=== PATIENT | female | born 1985 | race Two or more races ===

== ENCOUNTER 2016-10-11 14:40 | Emergency (ER) | payer MEDICAID, OTHER ==
--- NOTE | 2016-10-11 14:49 | EDM.PDOC ---
ED HPI Trauma - General Chief Complaint: Upper Extremity Injury/Pain Stated Complaint: FALL Time Seen by Provider: 10/11/16 14:42 Source: Reports: Patient History Limitations: Reports: No limitations - History of Present Illness INITIAL COMMENTS - FREE TEXT/NARRATIVE: History of present illness: [] Patient slipped on the ice and fell onto her left elbow 30 minutes ago the denies any other injuries. Patient denies any numbness or tingling she is unable to straighten her elbow due to pain. Review of systems: As per history of present illness and below otherwise all systems reviewed and negative. Past medical history: As per history of present illness and as reviewed below otherwise noncontributory. Surgical history: As per history of present illness and as reviewed below otherwise noncontributory. Social history: No reported history of drug or alcohol abuse. Family history: As per history of present illness and as reviewed below otherwise noncontributory. Physical exam: General: Well developed, well nourished in NAD HEENT: Atraumatic, normocephalic, pupils reactive, negative for conjunctival pallor or scleral icterus, mucous membranes moist, throat clear, neck supple, nontender, trachea midline. Lungs: Clear to auscultation, breath sounds equal bilaterally, chest nontender. Heart: S1S2, regular, negative for clicks, rubs, or JVD. Abdomen: Soft, nondistended, nontender. Negative for masses or hepatosplenomegaly. Negative for costovertebral tenderness. Pelvis: Stable nontender. Genitourinary: Deferred. Rectal: Deferred. Extremities: Atraumatic, negative for cords or calf pain. Neurovascular unremarkable. Neuro: Awake, alert, oriented. Cranial nerves II through XII unremarkable. Cerebellum unremarkable. Motor and sensory unremarkable throughout. Exam nonfocal. Diagnostics: [] X-rays left elbow showed no fracture Therapeutics: [] Motrin for pain Impression: [] Left Elbow continue Plan: [] Ice Motrin for pain followup PMD as needed Definitive disposition and diagnosis as appropriate pending reevaluation and review of above. Review of Systems - Review of Systems Review Of Systems: See Below (See history of present illness) Trauma Exam - Physical Exam Exam: See Below (See history of present illness) Course - Vital Signs Last Recorded V/S: Last Vital Signs Temp 36.8 C 10/11/16 14:45 Pulse 76 10/11/16 14:45 Resp 18 10/11/16 14:45 BP 117/71 10/11/16 14:45 Pulse Ox 99 10/11/16 14:45 - Orders/Labs/Meds Orders: Active Orders 24 hr Category Date Time Status Elbow Min 3V Lt [CR] Stat Exams 10/11/16 14:51 Taken Meds: Medications Discontinued Medications Generic Name Dose Route Start Last Admin Trade Name Manjinder PRN Reason Stop Dose Admin Ibuprofen 600 mg 10/11/16 14:54 10/11/16 15:02 Motrin PO 10/11/16 14:55 600 mg ONETIME ONE Administration Departure - Departure Time of Disposition: 15:38 Disposition: Home, Self-Care 01 Condition: good Clinical Impression: Left elbow contusion Qualifiers: Encounter type: initial encounter Qualified Code(s): S50.02XA - Contusion of left elbow, initial encounter Referrals: PCP,None [Primary Care Provider] - Forms: ED Department Discharge Additional Instructions: The following information is given to patients seen in the emergency department who are being discharged to home. This information is to outline your options for follow-up care. We provide all patients seen in our emergency department with a follow-up referral. The need for follow-up, as well as the timing and circumstances, are variable depending upon the specifics of your emergency department visit. If you don't have a primary care physician on staff, we will provide you with a referral. We always advise you to contact your personal physician following an emergency department visit to inform them of the circumstance of the visit and for follow-up with them and/or the need for any referrals to a consulting specialist. The emergency department will also refer you to a specialist when appropriate. This referral assures that you have the opportunity for follow-up care with a specialist. All of these measure are taken in an effort to provide you with optimal care, which includes your follow-up. Under all circumstances we always encourage you to contact your private physician who remains a resource for coordinating your care. When calling for follow-up care, please make the office aware that this follow-up is from your recent emergency room visit. If for any reason you are refused follow-up, please contact the [facility] at and asked to speak to the emergency department charge nurse. Motrin and ice for pain and swelling Followup PMD as needed [facility] [address] [place] [id number] - My Orders Last 24 Hours: My Active Orders 10/11/16 14:51 Elbow Min 3V Lt [CR] Stat - Assessment/Plan Last 24 Hours: My Active Orders 10/11/16 14:51 Elbow Min 3V Lt [CR] Stat
[2016-10-11] MEDS ORDERED: Ibuprofen 600 MG Tab PO ONE (14:54)
[2016-10-11 15:41] VITALS: BP 117/71
--- NOTE | 2016-10-14 15:04 | CR ---
EXAM DATE: 10/11/16 PATIENT'S AGE: 31 Patient: AGUEDA VILLARREAL Facility: [place], [place] Site . Site : 1985 Study: XRay Extremity Left [id number]/10/2017 3:17:18 PM Ordering Physician: Tan Carrion Final Report: Indication: Fall on ice today. Technique: Left elbow three views. Comparison: None. Findings: No acute fracture or dislocation. No additional osseous abnormality. No evidence of joint effusion or radiopaque foreign body. Impression: No acute osseous abnormality. Dictated by Estevan Engel MD @ 10/11/2016 3:31:11 PM Dictated by: Estevan Engel MD @ 10/11/2016 15:31:19 (Electronic Signature) Report Signed by Proxy and Original Signed Document filed in the Medical Record. HARPREET
== END 2016-10-11 15:48 | disposition home or self-care (01) ==
LOC: MW.ED 14:40
DX: S50.02XA Contusion of left elbow, initial encounter (principal); W00.0XXA Fall on same level due to ice and snow, initial encounter
CPT/HCPCS: 73080; 99283; A9270

== ENCOUNTER 2016-10-20 16:53 | Emergency (ER) | payer MEDICAID, OTHER ==
[2016-10-20] MEDS ORDERED: Ketorolac 60 MG/2 ML SDV IM ONE (17:36)
--- NOTE | 2016-10-20 17:43 | EDM.PDOC ---
ED HPI ENT - General Chief Complaint: ENT Problem Stated Complaint: HARD TO SWALLOW/PAIN MOUTH Time Seen by Provider: 10/20/16 16:57 Source of Information: Reports: Patient History Limitations: Reports: No limitations - History of Present Illness INITIAL COMMENTS - FREE TEXT/NARRATIVE: Presents reporting her right lower jaw pain. The patient states for the last 24 hours she has noticed a mild swelling and pain adjacent to tooth #19 or 20. The patient reports that her teeth are in good repair but she has not seen a dentist in some time. She also reports that her saliva has been very thick and makes it difficult for her to swallow. Denies fever, sore throat. - Related Data Allergies/ADRs: Allergies Allergy/AdvReac Type Severity Reaction Status Date / Time No Known Allergies Allergy Verified 10/20/16 17:04 Home Meds: Home Meds . [No Known Home Meds] 10/20/16 [History] Past Medical History - Past Health History Medical/Surgical History: Denies Medical/Surgical History Social & Family History - Family History Family Medical History: Noncontributory - Tobacco Use Smoking Status *Q: Current Every Day Smoker Years of Tobacco use: 4 Packs/Tins Daily: 0.5 Used Tobacco, but Quit: No Second Hand Smoke Exposure: No - Caffeine Use Caffeine Use: Reports: Soda - Recreational Drug Use Recreational Drug Use: No ED ROS ENT - Review of Systems Review Of Systems: ROS reveals no pertinent complaints other than HPI. ED EXAM, ENT - Physical Exam Exam: See Below Exam Limited By: No limitations General Appearance: alert, no apparent distress Ears: normal external exam, normal TMs Nose: normal inspection Mouth/Throat: Normal inspection, Normal gums, Normal lips, Normal oropharynx, Normal teeth, Other (Mild swelling but local tenderness without erythema or calor noted in the left lower jaw adjacent to tooth #19 and 20. No associated intraoral abnormalities or dental caries. No missing, cracked teeth or obvious caries, gingivitis or periodontal disease) Course - Vital Signs Last Recorded V/S: Last Vital Signs Temp 36.6 C 10/20/16 17:01 Pulse 88 10/20/16 17:01 Resp 16 10/20/16 17:01 BP 123/63 10/20/16 17:01 Pulse Ox 100 10/20/16 17:01 - Orders/Labs/Meds Orders: Active Orders 24 hr Category Date Time Status Ketorolac [Toradol] Med 10/20/16 17:36 Once 60 mg IM ONETIME ONE Departure - Departure Time of Disposition: 17:41 Disposition: Home, Self-Care 01 Condition: good Clinical Impression: Mandible pain Referrals: PCP,None [Primary Care Provider] - [facility] [Outside] [facility] [Outside] Forms: ED Department Discharge Additional Instructions: 1. Please see a dentist as soon as possible for an evaluation. A list of local dentists has been provided 2. Take your antibiotics as directed 3. Ibuprofen 4-600 mg 3 times a day as needed for pain 4. Followup in primary care as soon as possible 5. Drink plenty of fluids - My Orders Last 24 Hours: My Active Orders 10/20/16 17:36 Ketorolac [Toradol] 60 mg IM ONETIME ONE - Assessment/Plan Last 24 Hours: My Active Orders 10/20/16 17:36 Ketorolac [Toradol] 60 mg IM ONETIME ONE
[2016-10-20 18:16] VITALS: BP 122/77
== END 2016-10-20 18:16 | disposition home or self-care (01) ==
LOC: MW.ED 16:53
DX: R68.84 Jaw pain (principal); F17.210 Nicotine dependence, cigarettes, uncomplicated
CPT/HCPCS: 96372; 99283; J1885

== ENCOUNTER 2016-10-21 16:15 | Emergency (ER) | payer MEDICAID, OTHER ==
[2016-10-21 16:27] VITALS: BP 108/68
[2016-10-21] MEDS ORDERED: cefTRIAXone 2,000 MG in Lidocaine 1% 4 ML IM ONE (16:42)
--- NOTE | 2016-10-21 16:56 | EDM.PDOC ---
ED HPI GENERAL MEDICAL PROBLEM - General Chief Complaint: Neck Problem Stated Complaint: THROAT SWOLLEN Time Seen by Provider: 10/21/16 16:30 Source of Information: Reports: Patient History Limitations: Reports: No limitations - History of Present Illness INITIAL COMMENTS - FREE TEXT/NARRATIVE: History of present illness: [31-year-old female returning to the ED with concerns of increased swelling, erythema, and pain to right lower jaw. Patient was seen in this ED yesterday with this concern less than 24 hours ago.] Review of systems: As per history of present illness and below otherwise all systems reviewed and negative. Past medical history: As per history of present illness and as reviewed below otherwise noncontributory. Surgical history: As per history of present illness and as reviewed below otherwise noncontributory. Social history: No reported history of drug or alcohol abuse. Family history: As per history of present illness and as reviewed below otherwise noncontributory. Physical exam: HEENT: Atraumatic, normocephalic, pupils reactive, negative for conjunctival pallor or scleral icterus, mucous membranes moist, throat clear, neck supple, nontender, trachea midline. Lungs: Clear to auscultation, breath sounds equal bilaterally, chest nontender. Heart: S1S2, regular, negative for clicks, rubs, or JVD. Abdomen: Soft, nondistended, nontender. Negative for masses or hepatosplenomegaly. Negative for costovertebral tenderness. Pelvis: Stable nontender. Genitourinary: Deferred. Rectal: Deferred. Extremities: Atraumatic, negative for cords or calf pain. Neurovascular unremarkable. Neuro: Awake, alert, oriented. Cranial nerves II through XII unremarkable. Cerebellum unremarkable. Motor and sensory unremarkable throughout. Exam nonfocal. Patient with continued swelling on underside of job an area of right mandible this is slightly worse than seen yesterday is now there is erythema. Patient was seen less than 24 hours ago and is indicating that she is also having some pain Diagnostics: [] Therapeutics: [] Impression: [Mandible pain] Plan: [2 g Rocephin in ED, continue her by mouth antibiotics as previously prescribed , as well as Tylenol 3 as needed for pain] Definitive disposition and diagnosis as appropriate pending reevaluation and review of above. under the right jaw area Pain Score (Numeric/FACES): 10 - Related Data Allergies Allergy/AdvReac Type Severity Reaction Status Date / Time No Known Allergies Allergy Verified 10/21/16 16:19 Home Meds: Home Meds Clindamycin HCl 1 cap PO Q6HR 10/21/16 [History] Past Medical History - Past Health History Medical/Surgical History: Denies Medical/Surgical History Cardiovascular History: Reports: None Respiratory History: Reports: None FINANCIAL REP History: Reports: None Musculoskeletal History: Reports: None Dermatologic History: Reports: None - Infectious Disease History Infectious Disease History: Reports: Chicken pox - Past Surgical History Cardiovascular Surgical History: Reports: None Neurological Surgical History: Reports: None Social & Family History - Family History Family Medical History: Noncontributory - Tobacco Use Smoking Status *Q: Current Every Day Smoker Years of Tobacco use: 4 Packs/Tins Daily: 0.3 Used Tobacco, but Quit: No Second Hand Smoke Exposure: No - Caffeine Use Caffeine Use: Reports: Soda - Recreational Drug Use Recreational Drug Use: No ED ROS GENERAL - Review of Systems Review Of Systems: See Below (See history of present illness) ED EXAM, GENERAL - Physical Exam Exam: See Below (See history of present illness) Course - Vital Signs Last Recorded V/S: Last Vital Signs Temp 36.7 C 10/21/16 16:19 Pulse 92 10/21/16 16:19 Resp 16 10/21/16 16:19 BP 108/68 10/21/16 16:19 Pulse Ox 99 10/21/16 16:19 - Orders/Labs/Meds Meds: Medications Discontinued Medications Generic Name Dose Route Start Last Admin Trade Name Freq PRN Reason Stop Dose Admin Ceftriaxone Sodium 2,000 mg/ 4 mls @ 4 mls/sec 10/21/16 16:42 Lidocaine HCl IM 10/21/16 16:43 ONETIME ONE Departure - Departure Time of Disposition: 16:59 Disposition: Home, Self-Care 01 Condition: good Clinical Impression: Mandible pain Forms: ED Department Discharge Additional Instructions: The following information is given to patients seen in the emergency department who are being discharged to home. This information is to outline your options for follow-up care. We provide all patients seen in our emergency department with a follow-up referral. The need for follow-up, as well as the timing and circumstances, are variable depending upon the specifics of your emergency department visit. If you don't have a primary care physician on staff, we will provide you with a referral. We always advise you to contact your personal physician following an emergency department visit to inform them of the circumstance of the visit and for follow-up with them and/or the need for any referrals to a consulting specialist. The emergency department will also refer you to a specialist when appropriate. This referral assures that you have the opportunity for follow-up care with a specialist. All of these measure are taken in an effort to provide you with optimal care, which includes your follow-up. Under all circumstances we always encourage you to contact your private physician who remains a resource for coordinating your care. When calling for follow-up care, please make the office aware that this follow-up is from your recent emergency room visit. If for any reason you are refused follow-up, please contact the [facility] Emergency Department at and asked to speak to the emergency department charge nurse. Take antibiotics as directed Followup with dentist as soon as possible Return to ED as needed as discussed
== END 2016-10-21 17:17 | disposition home or self-care (01) ==
LOC: MW.ED 16:15
DX: R68.84 Jaw pain (principal); F17.210 Nicotine dependence, cigarettes, uncomplicated
CPT/HCPCS: 96372; 99283; J0696

== ENCOUNTER 2016-10-22 14:49 | Inpatient (IN) | payer MEDICAID, OTHER ==
[2016-10-22 15:57] LABS: CHLORIDE,CL 105 mmol/L (98-110); SODIUM,NA 139 mmol/L (136-146)
[2016-10-22] MEDS ORDERED: Iopamidol 755 MG/ML 500 ML Multipack Bottle IVPUSH STA (16:05)
[2016-10-22] MEDS ORDERED: Sodium Chloride 0.9% 2.5 ML Syringe FLUSH PRN (18:58)
[2016-10-22] MEDS ORDERED: Sodium Chloride 0.9% 10 ML Syringe FLUSH PRN (18:58)
[2016-10-22] MEDS ORDERED: Acetaminophen 325 MG Tab PO PRN (18:58)
[2016-10-22] MEDS ORDERED: Ondansetron 4 MG Tab.DIS PO PRN (18:58)
[2016-10-22] MEDS ORDERED: cefTRIAXone 1,000 MG in Sodium Chloride 0.9% 50 ML IV SCH (19:00)
--- NOTE | 2016-10-22 19:58 | PCM.HP ---
H&P History of Present Illness - General Date of Service: 10/22/16 Admit Problem/Dx: Admission Diagnosis/Problem Admission Diagnosis/Problem Abscess of neck Source of Information: Patient History Limitations: Reports: No limitations - History of Present Illness Initial Comments - Free Text/Narative: 31 yo female admitted 10/22/16 for sublingual abscess/cellulites. Patient states she woke up on the Friday 10/20 with some swelling and redness to her left jaw. She went into the ED and was given an oral antibiotic and discharged. The next morning the swelling had increased so she returned to the ED where she states she was given an abx shot (rocephin) as well as a prescription for Clindamycin. Today 10/22/18 the patient was still concerned as to the swelling, redness, and now difficulty in opening her mouth so went to see Elizabeth Pineda NP who preformed a CT showing a 33 x 9 mm sublingual space abscess medial to the right mandibular body. There were also adjacent enlarged enhancing lymph nodes and edematous inflitration of the tissue planes of the upper neck, greater on the right. Elizabeth contacted Dr. Farris, ENT, who reviewed the films and instructed Elizabeth to have patient admitted for IV antibiotics and possible drainage of the abscess. Patient states that she has not had any associated fevers or shortness of breath. She is able to swallow and has never had a similar episode before. She is generally healthy and takes no medication and has no medical allergies. She has had 4 for 4 healthy children. 3 boys and 1 girl. She denies any chest pain, palpitations, shortness or breath, syncopal episodes, or focal neuralogic deficits. Patient will be admitted and ENT will be consulted for sublingual abscess/ cellulites. 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: Musculoskeletal History: Reports: None Dermatologic History: Reports: None - Infectious Disease History Infectious Disease History: Reports: Chicken pox - Past Surgical History Cardiovascular Surgical History: Reports: None Neurological Surgical History: Reports: None Social & Family History - Family History Family Medical History: Noncontributory - Tobacco Use Smoking Status *Q: Current Every Day Smoker Years of Tobacco use: 4 Packs/Tins Daily: 0.2 Used Tobacco, but Quit: No Second Hand Smoke Exposure: No - Caffeine Use Caffeine Use: Reports: Coffee - Recreational Drug Use Recreational Drug Use: No H&P Review of Systems - Review of Systems: Review Of Systems: See Below General: Denies: fever, malaise, weakness HEENT: Denies: headaches, sore throat Pulmonary: Denies: Shortness of Breath, Cough, Sputum Cardiovascular: Denies: chest pain, palpitations, edema Gastrointestinal: Denies: Abdominal pain, Black stool, Bloody stool, Diarrhea, Nausea Genitourinary: Denies: dysuria, hematuria Musculoskeletal: Denies: neck pain, leg pain Skin: Reports: change in color, lumps Psychiatric: Denies: confusion, depression Neurological: Denies: Confusion, Dizziness Hematologic/Lymphatic: Denies: anemia Immunologic: Denies: anaphylaxis Exam - Exam Exam: See Below - Vital Signs Vital Signs: Last Vital Signs Temp 36.7 C 10/22/16 18:48 Pulse 85 10/22/16 18:48 Resp 18 10/22/16 18:48 BP 106/80 10/22/16 18:48 Pulse Ox 100 10/22/16 18:48 Weight: 62.823 kg - Exam Quality Assessment: DVT prophylaxis General: alert, oriented, cooperative HEENT: Conjunctiva clear, EACs clear, EOMI, Hearing intact, Mucosa moist & pink , Nares patent, Normal nasal septum, Posterior pharynx clear, PERRLA Neck: supple, other (erythema and swelling to right side of neck. There is adjacent lymphadenopathy and tendness to right mandible. ) Lungs: Clear to auscultation, Normal respiratory effort Cardiovascular: regular rate, regular rhythm Abdomen: normal bowel sounds, soft Extremities: normal inspection, normal pulses Peripheral Pulses: 2+: radial (L), radial (R), posterior tibial (L), posterior tibial (R), dorsalis pedis (L), dorsalis pedis (R) Skin: other (See above under neck) Neurological: cranial nerves intact Neuro Extensive - Mental Status: alert, oriented x3, normal mood/affect, normal cognition Neuro Extensive - Motor, Sensory, Reflexes: CN II-XII intact Psychiatric: alert, normal affect, normal mood - Patient Data Lab Results last 24 hrs: Laboratory Results - last 24 hr 10/22/16 10/22/16 10/22/16 Range/Units 14:59 14:59 14:59 WBC 11.72 H (4.0-11.0) K/uL RBC 4.38 (4.30-5.90) M/uL Hgb 11.6 L (12.0-16.0) g/dL Hct 35.4 L (36.0-46.0) % MCV 80.8 (80.0-98.0) fL MCH 26.5 L (27.0-32.0) pg MCHC 32.8 (31.0-37.0) g/dL RDW Std Deviation 43.1 (28.0-62.0) fl RDW Coeff of Milagros 15 (11.0-15.0) % Plt Count 275 (150-400) K/uL MPV 9.70 (7.40-12.00) fL Neut % (Auto) 82.0 H (48.0-80.0) % Lymph % (Auto) 9.6 L (16.0-40.0) % [place] % (Auto) 7.7 (0.0-15.0) % Eos % (Auto) 0.5 (0.0-7.0) % Baso % (Auto) 0.2 (0.0-1.5) % Neut # 9.6 H (1.4-5.7) K/uL Lymph # 1.1 (0.6-2.4) K/uL [place] # 0.9 H (0.0-0.8) K/uL Eos # 0.1 (0.0-0.7) K/uL Baso # 0.0 (0.0-0.1) K/uL Nucleated RBC % 0.0 /100WBC Nucleated RBCs # 0 K/uL Sodium 139 (136-146) mmol/L Potassium 3.9 (3.5-5.1) mmol/L Chloride 105 (98-110) mmol/L Carbon Dioxide 24 (21-31) mmol/L BUN 14 (6.0-23.0) mg/dL Creatinine 0.9 (0.6-1.5) mg/dL Est Cr Clr Drug Dosing 65.05 mL/min Estimated GFR (MDRD) > 60.0 ml/min Glucose 87 (60-110) mg/dL Calcium 9.3 (8.8-10.8) mg/dL C-Reactive Protein 23.81 H (0.0-0.5) mg/dL Urine HCG, Qual (NEGATIVE) 10/22/16 Range/Units 15:00 WBC (4.0-11.0) K/uL RBC (4.30-5.90) M/uL Hgb (12.0-16.0) g/dL Hct (36.0-46.0) % MCV (80.0-98.0) fL MCH (27.0-32.0) pg MCHC (31.0-37.0) g/dL RDW Std Deviation (28.0-62.0) fl RDW Coeff of Milagros (11.0-15.0) % Plt Count (150-400) K/uL MPV (7.40-12.00) fL Neut % (Auto) (48.0-80.0) % Lymph % (Auto) (16.0-40.0) % [place] % (Auto) (0.0-15.0) % Eos % (Auto) (0.0-7.0) % Baso % (Auto) (0.0-1.5) % Neut # (1.4-5.7) K/uL Lymph # (0.6-2.4) K/uL [place] # (0.0-0.8) K/uL Eos # (0.0-0.7) K/uL Baso # (0.0-0.1) K/uL Nucleated RBC % /100WBC Nucleated RBCs # K/uL Sodium (136-146) mmol/L Potassium (3.5-5.1) mmol/L Chloride (98-110) mmol/L Carbon Dioxide (21-31) mmol/L BUN (6.0-23.0) mg/dL Creatinine (0.6-1.5) mg/dL Est Cr Clr Drug Dosing mL/min Estimated GFR (MDRD) ml/min Glucose (60-110) mg/dL Calcium (8.8-10.8) mg/dL C-Reactive Protein (0.0-0.5) mg/dL Urine HCG, Qual NEGATIVE (NEGATIVE) Result Diagrams: 10/22/16 14:59 10/22/16 14:59 *Q Meaningful Use (ADM) - VTE *Q VTE Criteria *Q: - Stroke *Q Stroke Criteria *Q: - AMI *Q AMI Criteria *Q: - Problem List (1) Cellulitis and abscess of neck SNOMED Code(s): 124662438 ICD Code: L03.221 - CELLULITIS OF NECK; L02.11 - CUTANEOUS ABSCESS OF NECK Status: Acute Priority: High Current Visit: Yes Problem List Initiated/Reviewed/Updated: Yes Orders Last 24hrs: Active Orders 24 hr Category Date Time Status Patient Status [ADT] Routine ADT 10/22/16 18:58 Active Antiembolic Devices [RC] DAILY Care 10/22/16 19:01 Active May Shower [RC] ASDIRECTED Care 10/22/16 18:58 Active Notify Provider Consults [RC] ASDIRECTED Care 10/22/16 19:04 Active Oxygen Therapy [RC] PRN Care 10/22/16 18:58 Active Peripheral IV Care [RC] Q4H Care 10/22/16 18:58 Active Up With Assistance [RC] ASDIRECTED Care 10/22/16 18:58 Active VTE/DVT Education [RC] PER UNIT ROUTINE Care 10/22/16 18:58 Active Vital Signs [RC] Q4H Care 10/22/16 18:58 Active Consult to Physician [CONS] Routine Cons 10/22/16 18:58 Active Nothing per Oral Now Diet [DIET] Diet 10/22/16 Dinner Active Soft Tissue Neck w Cont [CT] Stat Exams 10/22/16 Taken BASIC METABOLIC PANEL,BMP [CHEM] DAILY Lab 10/23/16 05:00 Ordered BASIC METABOLIC PANEL,BMP [CHEM] DAILY Lab 10/24/16 05:00 Ordered BASIC METABOLIC PANEL,BMP [CHEM] DAILY Lab 10/25/16 05:00 Ordered BASIC METABOLIC PANEL,BMP [CHEM] DAILY Lab 10/26/16 05:00 Ordered CBC WITH AUTO DIFF [HEME] DAILY Lab 10/23/16 05:00 Ordered CBC WITH AUTO DIFF [HEME] DAILY Lab 10/24/16 05:00 Ordered CBC WITH AUTO DIFF [HEME] DAILY Lab 10/25/16 05:00 Ordered CBC WITH AUTO DIFF [HEME] DAILY Lab 10/26/16 05:00 Ordered CULTURE BLOOD [BC] Stat Lab 10/22/16 19:20 Received CULTURE BLOOD [BC] Stat Lab 10/22/16 19:30 Received MISC TEST Routine Lab 10/22/16 14:59 Received Acetaminophen [Tylenol] Med 10/22/16 18:58 Active 650 mg PO Q4H PRN Enoxaparin [Lovenox] Med 10/23/16 09:00 Active 40 mg SUBCUT DAILY Ondansetron [Zofran ODT] Med 10/22/16 18:58 Active 4 mg PO Q4H PRN Sodium Chloride 0.9% [Normal Saline] 1,000 ml Med 10/22/16 19:00 Active IV ASDIRECTED Sodium Chloride 0.9% [Saline Flush] Med 10/22/16 18:58 Active 10 ml FLUSH ASDIRECTED PRN Sodium Chloride 0.9% [Saline Flush] Med 10/22/16 18:58 Active 2.5 ml FLUSH ASDIRECTED PRN cefTRIAXone [Rocephin] 1,000 mg Med 10/22/16 19:00 Active Sodium Chloride 0.9% [Normal Saline] 50 ml IV Q24H metroNIDAZOLE/Normal Saline [Flagyl 500 MG in NS 100 ML Med 10/23/16 00:00 Active ] 500 mg Premix Bag 1 bag IV Q6H oxyCODONE Med 10/22/16 18:58 Active 5 mg PO Q4H PRN Blood Culture x2 Reflex Set [OM.PC] Stat Oth 10/22/16 18:58 Ordered Peripheral IV Insertion Adult [OM.PC] Routine Oth 10/22/16 18:58 Ordered Sequential Compression Device [OM.PC] Per Unit Routine Oth 10/22/16 19:00 Ordered Resuscitation Status Routine Resus Stat 10/22/16 18:58 Ordered Medication Orders Acetaminophen (Tylenol) 650 mg PO Q4H PRN PRN Reason: Pain (Mild 1-3)/fever Enoxaparin Sodium (Lovenox) 40 mg SUBCUT DAILY NAHOMI Sodium Chloride (Normal Saline) 1,000 mls @ 100 mls/hr IV ASDIRECTED NAHOMI Ceftriaxone Sodium 1,000 mg/ (Sodium Chloride) 50 mls @ 200 mls/hr IV Q24H NAHOMI Metronidazole 500 mg/ Premix 100 mls @ 100 mls/hr IV Q6H NAHOMI Ondansetron HCl (Zofran Odt) 4 mg PO Q4H PRN PRN Reason: nausea, able to take PO Oxycodone HCl (Oxycodone) 5 mg PO Q4H PRN PRN Reason: Pain (moderate 4-6) Sodium Chloride (Saline Flush) 10 ml FLUSH ASDIRECTED PRN PRN Reason: Keep Vein Open Sodium Chloride (Saline Flush) 2.5 ml FLUSH ASDIRECTED PRN PRN Reason: Keep Vein Open Assessment/Plan Comment:: 31 yo female with right 33 x 9 mm sublingual space abscess and cellulites. Abscess/cellulites: Blood cultures taken and pending. Started IV Rocephin and Flagyl as per instructions from ENT. No airway compromise will monitor closely. ENT to see this evening for possible drainage. VTE: Lovenox 40 mg sub q Dispo: 1-2 days pending.
[2016-10-22] MEDS: oxyCODONE 5 MG Tab PO PRN (20:33)
[2016-10-22] MEDS: Sodium Chloride 0.9% 1,000 ML IV SCH (20:34)
[2016-10-22] MEDS: cefTRIAXone 1 GM in Premix Bag 1 BAG IV SCH (20:36)
--- NOTE | 2016-10-22 20:41 | PCM.CONS ---
H&P History of Present Illness - General Date of Service: 10/22/16 Admit Problem/Dx: Admission Diagnosis/Problem Admission Diagnosis/Problem Abscess of neck - History of Present Illness Initial Comments - Free Text/Narative: Right sub mandibular swelling - 2 days Started as a very small lump under her jaw - increased in size over 1 day Also developed trismus Yesterday Was seen in ED and treated with PO antibiotics AND analgesia. Returned to clinic today with increasing sy Mastication - painful Has been on liquids Does not report local trauma No dental infection / pain No such previous symptoms No SOB/ no drooling No headaches Oral/Mouth Pain Score (Numeric/FACES): 8 - Related Data Allergies/Adverse Reactions: Allergies Allergy/AdvReac Type Severity Reaction Status Date / Time No Known Allergies Allergy Verified 10/21/16 16:19 Home Medications: Home Meds Clindamycin HCl 1 cap PO Q6HR 10/21/16 [History] Past Medical History - Past Health History Medical/Surgical History: Denies Medical/Surgical History Cardiovascular History: Reports: None Respiratory History: Reports: None 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: Musculoskeletal History: Reports: None Dermatologic History: Reports: None - Infectious Disease History Infectious Disease History: Reports: Chicken pox - Past Surgical History Cardiovascular Surgical History: Reports: None Neurological Surgical History: Reports: None Social & Family History - Family History Family Medical History: Noncontributory - Tobacco Use Smoking Status *Q: Current Every Day Smoker Years of Tobacco use: 4 Packs/Tins Daily: 0.2 Used Tobacco, but Quit: No Second Hand Smoke Exposure: No - Caffeine Use Caffeine Use: Reports: Coffee - Recreational Drug Use Recreational Drug Use: No H&P Review of Systems - Review of Systems: Review Of Systems: See Below General: Reports: weakness HEENT: Reports: other Pulmonary: Reports: No Symptoms Cardiovascular: Reports: no symptoms Gastrointestinal: Reports: No symptoms Musculoskeletal: Reports: neck pain Skin: Reports: erythema Psychiatric: Reports: no symptoms Neurological: Reports: No Symptoms Hematologic/Lymphatic: Reports: no symptoms Immunologic: Reports: no symptoms Exam - Exam Exam: See Below - Vital Signs Vital Signs: Last Vital Signs Temp 36.7 C 10/22/16 18:48 Pulse 85 10/22/16 18:48 Resp 18 10/22/16 18:48 BP 106/80 10/22/16 18:48 Pulse Ox 100 10/22/16 18:48 Weight: 62.823 kg - Exam General: alert, oriented, cooperative HEENT: Conjunctiva clear, EACs clear, EOMI, Mucosa moist & pink, Normal nasal septum, Other Neck: other Lungs: Clear to auscultation, Normal respiratory effort Cardiovascular: regular rate, regular rhythm Skin: warm, dry, intact Neurological: cranial nerves intact Neuro Extensive - Mental Status: alert, oriented x3 Psychiatric: alert, normal affect, normal mood Physical Exam Comments:: Neck / face - Swelling and overlying skin erythema - Right submandibular region , extending to upper neck and just crossing the midline Central area of firm - soft fluctuance - marked with an X. Oral cavity / oropharynx -Trismus present- moderate R FOM edema + Induration adjacent to the R mandible - adjacent to Canine - 1st molar; no purulence Tereso Gr II tonsils; Pharyngeal wall - clear R level II reactive and tender LNs present - Patient Data Lab Results last 24 hrs: Laboratory Results - last 24 hr 10/22/16 10/22/16 10/22/16 Range/Units 14:59 14:59 14:59 WBC 11.72 H (4.0-11.0) K/uL RBC 4.38 (4.30-5.90) M/uL Hgb 11.6 L (12.0-16.0) g/dL Hct 35.4 L (36.0-46.0) % MCV 80.8 (80.0-98.0) fL MCH 26.5 L (27.0-32.0) pg MCHC 32.8 (31.0-37.0) g/dL RDW Std Deviation 43.1 (28.0-62.0) fl RDW Coeff of Milagros 15 (11.0-15.0) % Plt Count 275 (150-400) K/uL MPV 9.70 (7.40-12.00) fL Neut % (Auto) 82.0 H (48.0-80.0) % Lymph % (Auto) 9.6 L (16.0-40.0) % [place] % (Auto) 7.7 (0.0-15.0) % Eos % (Auto) 0.5 (0.0-7.0) % Baso % (Auto) 0.2 (0.0-1.5) % Neut # 9.6 H (1.4-5.7) K/uL Lymph # 1.1 (0.6-2.4) K/uL [place] # 0.9 H (0.0-0.8) K/uL Eos # 0.1 (0.0-0.7) K/uL Baso # 0.0 (0.0-0.1) K/uL Nucleated RBC % 0.0 /100WBC Nucleated RBCs # 0 K/uL Sodium 139 (136-146) mmol/L Potassium 3.9 (3.5-5.1) mmol/L Chloride 105 (98-110) mmol/L Carbon Dioxide 24 (21-31) mmol/L BUN 14 (6.0-23.0) mg/dL Creatinine 0.9 (0.6-1.5) mg/dL Est Cr Clr Drug Dosing 65.05 mL/min Estimated GFR (MDRD) > 60.0 ml/min Glucose 87 (60-110) mg/dL Calcium 9.3 (8.8-10.8) mg/dL C-Reactive Protein 23.81 H (0.0-0.5) mg/dL Urine HCG, Qual (NEGATIVE) 10/22/16 Range/Units 15:00 WBC (4.0-11.0) K/uL RBC (4.30-5.90) M/uL Hgb (12.0-16.0) g/dL Hct (36.0-46.0) % MCV (80.0-98.0) fL MCH (27.0-32.0) pg MCHC (31.0-37.0) g/dL RDW Std Deviation (28.0-62.0) fl RDW Coeff of Milagros (11.0-15.0) % Plt Count (150-400) K/uL MPV (7.40-12.00) fL Neut % (Auto) (48.0-80.0) % Lymph % (Auto) (16.0-40.0) % [place] % (Auto) (0.0-15.0) % Eos % (Auto) (0.0-7.0) % Baso % (Auto) (0.0-1.5) % Neut # (1.4-5.7) K/uL Lymph # (0.6-2.4) K/uL [place] # (0.0-0.8) K/uL Eos # (0.0-0.7) K/uL Baso # (0.0-0.1) K/uL Nucleated RBC % /100WBC Nucleated RBCs # K/uL Sodium (136-146) mmol/L Potassium (3.5-5.1) mmol/L Chloride (98-110) mmol/L Carbon Dioxide (21-31) mmol/L BUN (6.0-23.0) mg/dL Creatinine (0.6-1.5) mg/dL Est Cr Clr Drug Dosing mL/min Estimated GFR (MDRD) ml/min Glucose (60-110) mg/dL Calcium (8.8-10.8) mg/dL C-Reactive Protein (0.0-0.5) mg/dL Urine HCG, Qual NEGATIVE (NEGATIVE) Result Diagrams: 10/22/16 14:59 10/22/16 14:59 Imaging Impressions last 24 hrs: CT head neck Small area of translucency adjacent to R mandible; surrounding cellulitis; ? inner cortex of mandible eroded adjacent to the abscess - reviewed by me Consult PN Assessment/Plan Procedures: Procedures EMERGENCY DEPT VISIT (10/11/16) X-RAY EXAM OF ELBOW (10/11/16) (1) Submandibular abscess SNOMED Code(s): 93678175 Code(s): K12.2 - CELLULITIS AND ABSCESS OF MOUTH Current Visit: Yes Problem List Initiated/Reviewed/Updated: Yes Plan: - IV antibiotics and analgesia - IV fluids - NPO after midnight - For incision and drainage of abscess under GA tomorrow ( uncertain of time) - Risks and benefits discussed - Consent obtained - Inform PRN
[2016-10-22] MEDS: Morphine 2 MG/ML Syringe IVPUSH PRN (22:54)
[2016-10-22] MEDS: metroNIDAZOLE/Normal Saline 500 MG in Premix Bag 1 BAG IV SCH (23:06)
[2016-10-23] MEDS: Morphine 2 MG/ML Syringe IVPUSH PRN ×2 (02:58→07:11)
[2016-10-23 05:33] LABS: CHLORIDE,CL 106 mmol/L (98-110); SODIUM,NA 138 mmol/L (136-146)
[2016-10-23] MEDS: metroNIDAZOLE/Normal Saline 500 MG in Premix Bag 1 BAG IV SCH ×4 (06:03→23:24)
[2016-10-23] MEDS ORDERED: Albuterol/Ipratropium 3.0-0.5 MG/3 ML Neb Soln NEB ONE (08:10)
--- NOTE | 2016-10-23 08:44 | PCM.PREANE ---
Preanesthetic Assessment - Procedure Proposed Procedure: Foot lesion excision. - Anesthesia/Transfusion/Family Hx Anesthesia History: Prior Anesthesia Without Reaction Transfusion History: No Prior Transfusion(s) Intubation History: Unknown - Review of Systems General: No Symptoms, Other (foot pain) Pulmonary: No Symptoms Cardiovascular: No Symptoms Gastrointestinal: No symptoms Neurological: No Symptoms Other: Reports: None - Physical Assessment O2 Sat by Pulse Oximetry: 95 Respiratory Rate: 18 Vital Signs: Last Vital Signs Temp 98.1 F 10/23/16 08:00 Pulse 92 10/23/16 08:00 Resp 18 10/23/16 08:00 BP 101/68 10/23/16 08:00 Pulse Ox 95 10/23/16 08:00 Height: 5 ft Weight: 138 lb 8 oz ASA Class: 2 Mental Status: Alert & Oriented x3 Airway Class: Mallampati = 4 (due to swelling and pain including right TMJ) Thyro-Mental Finger Breadths: 3 Mouth Opening Finger Breadths: 1 ROM/Head Extension: Limited/Partial (due to right neck/mandible area pain) Lungs: Clear to auscultation, Normal respiratory effort Cardiovascular: Regular Rate, Regular Rhythm, No Murmurs - Lab Values: Laboratory Last Values WBC 11.19 K/uL (4.0-11.0) H 10/23/16 04:51 RBC 3.92 M/uL (4.30-5.90) L 10/23/16 04:51 Hgb 10.6 g/dL (12.0-16.0) L 10/23/16 04:51 Hct 31.9 % (36.0-46.0) L 10/23/16 04:51 MCV 81.4 fL (80.0-98.0) 10/23/16 04:51 MCH 27.0 pg (27.0-32.0) 10/23/16 04:51 MCHC 33.2 g/dL (31.0-37.0) 10/23/16 04:51 RDW Std Deviation 43.5 fl (28.0-62.0) 10/23/16 04:51 RDW Coeff of Milagros 15 % (11.0-15.0) 10/23/16 04:51 Plt Count 264 K/uL (150-400) 10/23/16 04:51 MPV 9.80 fL (7.40-12.00) 10/23/16 04:51 Neut % (Auto) 82.4 % (48.0-80.0) H 10/23/16 04:51 Lymph % (Auto) 8.8 % (16.0-40.0) L 10/23/16 04:51 [place] % (Auto) 8.3 % (0.0-15.0) 10/23/16 04:51 Eos % (Auto) 0.4 % (0.0-7.0) 10/23/16 04:51 Baso % (Auto) 0.1 % (0.0-1.5) 10/23/16 04:51 Neut # 9.2 K/uL (1.4-5.7) H 10/23/16 04:51 Lymph # 1.0 K/uL (0.6-2.4) 10/23/16 04:51 [place] # 0.9 K/uL (0.0-0.8) H 10/23/16 04:51 Eos # 0.0 K/uL (0.0-0.7) 10/23/16 04:51 Baso # 0.0 K/uL (0.0-0.1) 10/23/16 04:51 Nucleated RBC % 0.0 /100WBC 10/23/16 04:51 Nucleated RBCs # 0 K/uL 10/23/16 04:51 Sodium 138 mmol/L (136-146) 10/23/16 04:51 Potassium 4.2 mmol/L (3.5-5.1) 10/23/16 04:51 Chloride 106 mmol/L (98-110) 10/23/16 04:51 Carbon Dioxide 22 mmol/L (21-31) 10/23/16 04:51 BUN 10 mg/dL (6.0-23.0) 10/23/16 04:51 Creatinine 0.9 mg/dL (0.6-1.5) 10/23/16 04:51 Est Cr Clr Drug Dosing 65.05 mL/min 10/23/16 04:51 Estimated GFR (MDRD) > 60.0 ml/min 10/23/16 04:51 Glucose 90 mg/dL (60-110) 10/23/16 04:51 Calcium 8.5 mg/dL (8.8-10.8) L 10/23/16 04:51 C-Reactive Protein 23.81 mg/dL (0.0-0.5) H 10/22/16 14:59 Urine HCG, Qual NEGATIVE (NEGATIVE) 10/22/16 15:00 - Allergies Allergies/Adverse Reactions: Allergies Allergy/AdvReac Type Severity Reaction Status Date / Time No Known Allergies Allergy Verified 10/21/16 16:19 - Blood Blood Available: No Product(s) Available: None - Anesthesia Plan Free Text/Narrative:: may need indirect laryngoscopy to secure airway. Pre-Op Medication Ordered: None - Acknowledgements Anesthesia Type Planned: General Anesthesia (OET; ok per surgeon) Pt an Appropriate Candidate for the Planned Anesthesia: Yes Alternatives and Risks of Anesthesia Discussed w Pt/Guardian: Yes Pt/Guardian Understands and Agrees with Anesthesia Plan: Yes PreAnesthesia Questionnaire - Past Health History Medical/Surgical History: Denies Medical/Surgical History Cardiovascular History: Reports: None Respiratory History: Reports: None [employer] History: Reports: Musculoskeletal History: Reports: None Dermatologic History: Reports: None - Infectious Disease History Infectious Disease History: Reports: Chicken pox - Past Surgical History Cardiovascular Surgical History: Reports: None Neurological Surgical History: Reports: None - SUBSTANCE USE Smoking Status *Q: Current Every Day Smoker Tobacco Use Within Last Twelve Months: Cigarettes Second Hand Smoke Exposure: No Recreational Drug Use History: No - HOME MEDS Home Medications: Home Meds Clindamycin HCl 1 cap PO Q6HR 10/21/16 [History] - CURRENT (IN HOUSE) MEDS Current Meds: Current Medications Acetaminophen (Tylenol) 650 mg PO Q4H PRN PRN Reason: Pain (Mild 1-3)/fever Enoxaparin Sodium (Lovenox) 40 mg SUBCUT DAILY [facility] Sodium Chloride (Normal Saline) 1,000 mls @ 100 mls/hr IV ASDIRECTED [facility] Last Admin: 10/22/16 20:34 Dose: 100 mls/hr Metronidazole 500 mg/ Premix 100 mls @ 100 mls/hr IV Q6H [facility] Last Admin: 10/23/16 06:03 Dose: 100 mls/hr Ceftriaxone Sodium/Dextrose 1 (gm/ Premix) 50 mls @ 100 mls/hr IV Q24H [facility] Last Admin: 10/22/16 20:36 Dose: 100 mls/hr Morphine Sulfate (Morphine) 2 mg IVPUSH Q4H PRN PRN Reason: Pain (severe 7-10) Last Admin: 10/23/16 07:11 Dose: 2 mg Ondansetron HCl (Zofran Odt) 4 mg PO Q4H PRN PRN Reason: nausea, able to take PO Oxycodone HCl (Oxycodone) 5 mg PO Q4H PRN PRN Reason: Pain (moderate 4-6) Last Admin: 10/22/16 20:33 Dose: 5 mg Sodium Chloride (Saline Flush) 10 ml FLUSH ASDIRECTED PRN PRN Reason: Keep Vein Open Sodium Chloride (Saline Flush) 2.5 ml FLUSH ASDIRECTED PRN PRN Reason: Keep Vein Open Discontinued Medications Albuterol/Ipratropium (Duoneb 3.0-0.5 Mg/3 Ml) 3 ml NEB ONETIME ONE Stop: 10/23/16 08:11 Iopamidol (Isovue Multipack-370 (76%)) 75 ml IVPUSH ONETIME STA Stop: 10/22/16 16:06 Last Admin: 10/22/16 17:01 Dose: 75 ml Preanesthetic Assessment - PHYSICAL ASSESSMENT O2 Sat by Pulse Oximetry: 95 RR: 18 Vital Signs: Last Vital Signs Temp 98.1 F 10/23/16 08:00 Pulse 92 10/23/16 08:00 Resp 18 10/23/16 08:00 BP 101/68 10/23/16 08:00 Pulse Ox 95 10/23/16 08:00 Height: 5 ft Weight: 138 lb 8 oz - LAB Values: Laboratory Last Values WBC 11.19 K/uL (4.0-11.0) H 10/23/16 04:51 RBC 3.92 M/uL (4.30-5.90) L 10/23/16 04:51 Hgb 10.6 g/dL (12.0-16.0) L 10/23/16 04:51 Hct 31.9 % (36.0-46.0) L 10/23/16 04:51 MCV 81.4 fL (80.0-98.0) 10/23/16 04:51 MCH 27.0 pg (27.0-32.0) 10/23/16 04:51 MCHC 33.2 g/dL (31.0-37.0) 10/23/16 04:51 RDW Std Deviation 43.5 fl (28.0-62.0) 10/23/16 04:51 RDW Coeff of Milagros 15 % (11.0-15.0) 10/23/16 04:51 Plt Count 264 K/uL (150-400) 10/23/16 04:51 MPV 9.80 fL (7.40-12.00) 10/23/16 04:51 Neut % (Auto) 82.4 % (48.0-80.0) H 10/23/16 04:51 Lymph % (Auto) 8.8 % (16.0-40.0) L 10/23/16 04:51 [place] % (Auto) 8.3 % (0.0-15.0) 10/23/16 04:51 Eos % (Auto) 0.4 % (0.0-7.0) 10/23/16 04:51 Baso % (Auto) 0.1 % (0.0-1.5) 10/23/16 04:51 Neut # 9.2 K/uL (1.4-5.7) H 10/23/16 04:51 Lymph # 1.0 K/uL (0.6-2.4) 10/23/16 04:51 [place] # 0.9 K/uL (0.0-0.8) H 10/23/16 04:51 Eos # 0.0 K/uL (0.0-0.7) 10/23/16 04:51 Baso # 0.0 K/uL (0.0-0.1) 10/23/16 04:51 Nucleated RBC % 0.0 /100WBC 10/23/16 04:51 Nucleated RBCs # 0 K/uL 10/23/16 04:51 Sodium 138 mmol/L (136-146) 10/23/16 04:51 Potassium 4.2 mmol/L (3.5-5.1) 10/23/16 04:51 Chloride 106 mmol/L (98-110) 10/23/16 04:51 Carbon Dioxide 22 mmol/L (21-31) 10/23/16 04:51 BUN 10 mg/dL (6.0-23.0) 10/23/16 04:51 Creatinine 0.9 mg/dL (0.6-1.5) 10/23/16 04:51 Est Cr Clr Drug Dosing 65.05 mL/min 10/23/16 04:51 Estimated GFR (MDRD) > 60.0 ml/min 10/23/16 04:51 Glucose 90 mg/dL (60-110) 10/23/16 04:51 Calcium 8.5 mg/dL (8.8-10.8) L 10/23/16 04:51 C-Reactive Protein 23.81 mg/dL (0.0-0.5) H 10/22/16 14:59 Urine HCG, Qual NEGATIVE (NEGATIVE) 10/22/16 15:00 - ALLERGIES Allergies/Adverse Reactions: Allergies Allergy/AdvReac Type Severity Reaction Status Date / Time No Known Allergies Allergy Verified 10/21/16 16:19
[2016-10-23] MEDS ORDERED: Enoxaparin 40 MG/0.4 ML Syringe SUBCUT SCH (09:00)
[2016-10-23] MEDS: Sodium Chloride 0.9% 1,000 ML IV SCH (10:10)
[2016-10-23] MEDS ORDERED: fentaNYL 250 MCG/5 ML SDV ONE (10:10)
[2016-10-23] MEDS ORDERED: Rocuronium 10 MG/ML 10 ML Syringe ONE (10:10)
[2016-10-23] MEDS ORDERED: Propofol 200 MG/20 ML SDV ONE (10:10)
[2016-10-23] MEDS ORDERED: Midazolam 1 MG/ML 2 ML SDV ONE (10:10)
[2016-10-23] MEDS ORDERED: Lidocaine 2% 5 ML SDV ONE (10:10)
[2016-10-23] MEDS ORDERED: Ondansetron 4 MG/2 ML SDV ONE (10:10)
--- NOTE | 2016-10-23 10:58 | PCM.HPR ---
H & P Addendum review - H & P Addendum Review Date of Original H & P: 10/22/16 Date Reviewed: 10/23/16 Time Reviewed: 10:50 Patient was examined: No Changes
[2016-10-23] MEDS ORDERED: Lidocaine 2% with EPINEPHrine 1:100,000 20 ML MDV ONE (10:59)
--- NOTE | 2016-10-23 11:03 | PCM.OPNOTE ---
- General Post-Op/Procedure Note Date of Surgery/Procedure: 10/23/16 Anesthesia Technique: General ET tube Primary Surgeon: Libby Farris Anesthesia Provider: Colby Ng Fluid Replacement, Intraop: 2,000 EBL in mLs: 10 Condition: Good Free Text/Narrative:: Intake & Output Diagnosis: Right sublingual space abscess Procedure: Intra oral incision and drainage of Right sublingual abscess Surgeon: Libby Farris MD Anesthesia: GA Anesthesiologist: Basil Ng MD Date of procedure: 10/23/2016 Indications: Patient has had a progressively enlarging right facial/ submandibular swelling for the last 3 days. After an un successful trial of oral antibiotics she underwent a contrast scan yesterday which showed a collection in the right sublingual space. She was consented for the procedure. Findings: diffuse swelling of the right submandibular region extending onto the right mandibular margin. This swelling extends just to the left of the midline in the upper neck. Overlying skin was cellulitic. Approximately 10 cc of creamy purulence drained from the right sublingual space. Operation Details: An informed consent was obtained. A time out was performed and the patient was brought back to the operating room. Gen. anesthesia was administered with an endotracheal tube. Prior to start of procedure anesthesia expressed concern about the patient being tachycardic. This was thought to be from inappropriate fluid replacement. Fluid bolus given and she responded to this. The patient was appropriately positioned and the part was prepped and draped in a standard sterile fashion. An 18-gauge needle was used to aspirate the skin at the most prominent aspect-no purulence The mouth was propped open with the bite block and the tongue was retracted away from the operating site with the help of a 0 Silk suture. The right sublingual space adjacent to the mandible was aspirated with an 18-gauge needle- purulence expressed-sent for culture and sensitivity. Number 10 blade on a BP handle was used to make superficial stab incision. This was further dilated with hemostat and approximately 10 cc of purulence was expressed. The cavity was thoroughly irrigated with warm saline. Hemostasis was ensured with a swab soaked in 1: 1000 epinephrine. 2 cc of lidocaine w 1: 1000 epinephrine was locally injected at the site of drainage. This concluded the procedure. The tongue suture and bite block were removed. The patient was handed over to anesthesia for recovery. Specimens: Purulence IV fluids: 2000 ml Blood loss: 10 ml Blood products: nil Disposition: PACU for recovery and then to the floor Follow up: In 1 week
[2016-10-23] MEDS ORDERED: Phenylephrine/Normal Saline 100 MCG/ML 10 ML Syringe ONE (11:20)
--- NOTE | 2016-10-23 11:21 | PCM.PN ---
- General Info Date of Service: 10/23/16 Admission Dx/Problem (Free Text): Admission Diagnosis/Problem Admission Diagnosis/Problem Abscess of neck Subjective Update: Believes there has been a bit more swelling of right jaw and neck overnight. Having some tongue pain. Hungry. No chest pain, sob, palpitations, or wheezing. No complaints ready for surgery. Functional Status: Reports: pain controlled - Review of Systems General: Denies: Fever, Weakness, Fatigue HEENT: Reports: sore throat. Denies: sinus congestion Pulmonary: Denies: shortness of breath, hemoptysis, wheezing Cardiovascular: Denies: Chest Pain, Palpitations, Edema Gastrointestinal: Denies: Abdominal pain, Nausea, Vomiting Genitourinary: Denies: dysuria, hematuria Musculoskeletal: Denies: leg pain Skin: Denies: cyanosis Neurological: Denies: Confusion, Dizziness Psychiatric: Denies: confusion - Patient Data Vitals - most recent: Last Vital Signs Temp 37.1 C 10/23/16 10:19 Pulse 92 10/23/16 10:19 Resp 16 10/23/16 10:19 BP 117/78 10/23/16 10:19 Pulse Ox 95 10/23/16 10:19 Weight - most recent: 62.823 kg I&O - last 24 hours: Intake & Output 10/22/16 10/23/16 10/23/16 22:59 06:59 14:59 Intake Total 50 420 1103 Output Total 1150 Balance 50 -730 1103 Lab Results last 24 hrs: Laboratory Results - last 24 hr 10/22/16 10/22/16 10/22/16 Range/Units 14:59 14:59 14:59 WBC 11.72 H (4.0-11.0) K/uL RBC 4.38 (4.30-5.90) M/uL Hgb 11.6 L (12.0-16.0) g/dL Hct 35.4 L (36.0-46.0) % MCV 80.8 (80.0-98.0) fL MCH 26.5 L (27.0-32.0) pg MCHC 32.8 (31.0-37.0) g/dL RDW Std Deviation 43.1 (28.0-62.0) fl RDW Coeff of Milagros 15 (11.0-15.0) % Plt Count 275 (150-400) K/uL MPV 9.70 (7.40-12.00) fL Neut % (Auto) 82.0 H (48.0-80.0) % Lymph % (Auto) 9.6 L (16.0-40.0) % [place] % (Auto) 7.7 (0.0-15.0) % Eos % (Auto) 0.5 (0.0-7.0) % Baso % (Auto) 0.2 (0.0-1.5) % Neut # 9.6 H (1.4-5.7) K/uL Lymph # 1.1 (0.6-2.4) K/uL [place] # 0.9 H (0.0-0.8) K/uL Eos # 0.1 (0.0-0.7) K/uL Baso # 0.0 (0.0-0.1) K/uL Nucleated RBC % 0.0 /100WBC Nucleated RBCs # 0 K/uL Sodium 139 (136-146) mmol/L Potassium 3.9 (3.5-5.1) mmol/L Chloride 105 (98-110) mmol/L Carbon Dioxide 24 (21-31) mmol/L BUN 14 (6.0-23.0) mg/dL Creatinine 0.9 (0.6-1.5) mg/dL Est Cr Clr Drug Dosing 65.05 mL/min Estimated GFR (MDRD) > 60.0 ml/min Glucose 87 (60-110) mg/dL Calcium 9.3 (8.8-10.8) mg/dL C-Reactive Protein 23.81 H (0.0-0.5) mg/dL Urine HCG, Qual (NEGATIVE) 10/22/16 10/23/16 10/23/16 Range/Units 15:00 04:51 04:51 WBC 11.19 H (4.0-11.0) K/uL RBC 3.92 L (4.30-5.90) M/uL Hgb 10.6 L (12.0-16.0) g/dL Hct 31.9 L (36.0-46.0) % MCV 81.4 (80.0-98.0) fL MCH 27.0 (27.0-32.0) pg MCHC 33.2 (31.0-37.0) g/dL RDW Std Deviation 43.5 (28.0-62.0) fl RDW Coeff of Milagros 15 (11.0-15.0) % Plt Count 264 (150-400) K/uL MPV 9.80 (7.40-12.00) fL Neut % (Auto) 82.4 H (48.0-80.0) % Lymph % (Auto) 8.8 L (16.0-40.0) % [place] % (Auto) 8.3 (0.0-15.0) % Eos % (Auto) 0.4 (0.0-7.0) % Baso % (Auto) 0.1 (0.0-1.5) % Neut # 9.2 H (1.4-5.7) K/uL Lymph # 1.0 (0.6-2.4) K/uL [place] # 0.9 H (0.0-0.8) K/uL Eos # 0.0 (0.0-0.7) K/uL Baso # 0.0 (0.0-0.1) K/uL Nucleated RBC % 0.0 /100WBC Nucleated RBCs # 0 K/uL Sodium 138 (136-146) mmol/L Potassium 4.2 (3.5-5.1) mmol/L Chloride 106 (98-110) mmol/L Carbon Dioxide 22 (21-31) mmol/L BUN 10 (6.0-23.0) mg/dL Creatinine 0.9 (0.6-1.5) mg/dL Est Cr Clr Drug Dosing 65.05 mL/min Estimated GFR (MDRD) > 60.0 ml/min Glucose 90 (60-110) mg/dL Calcium 8.5 L (8.8-10.8) mg/dL C-Reactive Protein (0.0-0.5) mg/dL Urine HCG, Qual NEGATIVE (NEGATIVE) Med Orders - Current: Current Medications Acetaminophen (Tylenol) 650 mg PO Q4H PRN PRN Reason: Pain (Mild 1-3)/fever Sodium Chloride (Normal Saline) 1,000 mls @ 100 mls/hr IV ASDIRECTED [facility] Last Admin: 10/23/16 10:10 Dose: 100 mls/hr Metronidazole 500 mg/ Premix 100 mls @ 100 mls/hr IV Q6H [facility] Last Admin: 10/23/16 06:03 Dose: 100 mls/hr Ceftriaxone Sodium/Dextrose 1 (gm/ Premix) 50 mls @ 100 mls/hr IV Q24H [facility] Last Admin: 10/22/16 20:36 Dose: 100 mls/hr Morphine Sulfate (Morphine) 2 mg IVPUSH Q4H PRN PRN Reason: Pain (severe 7-10) Last Admin: 10/23/16 07:11 Dose: 2 mg Ondansetron HCl (Zofran Odt) 4 mg PO Q4H PRN PRN Reason: nausea, able to take PO Oxycodone HCl (Oxycodone) 5 mg PO Q4H PRN PRN Reason: Pain (moderate 4-6) Last Admin: 10/22/16 20:33 Dose: 5 mg Sodium Chloride (Saline Flush) 10 ml FLUSH ASDIRECTED PRN PRN Reason: Keep Vein Open Sodium Chloride (Saline Flush) 2.5 ml FLUSH ASDIRECTED PRN PRN Reason: Keep Vein Open Discontinued Medications Albuterol/Ipratropium (Duoneb 3.0-0.5 Mg/3 Ml) 3 ml NEB ONETIME ONE Stop: 10/23/16 08:11 Last Admin: 10/23/16 08:55 Dose: 3 ml Enoxaparin Sodium (Lovenox) 40 mg SUBCUT DAILY [facility] Fentanyl (Sublimaze) Confirm Administered Dose 250 mcg .ROUTE .STK-MED ONE Stop: 10/23/16 10:11 Iopamidol (Isovue Multipack-370 (76%)) 75 ml IVPUSH ONETIME STA Stop: 10/22/16 16:06 Last Admin: 10/22/16 17:01 Dose: 75 ml Lidocaine (Xylocaine-Mpf 2%) Confirm Administered Dose 5 ml .ROUTE .STK-MED ONE Stop: 10/23/16 10:11 Lidocaine/Epinephrine (Xylocaine 2% With Epinephrine 1:100,000) Confirm Administered Dose 20 ml .ROUTE .STK-MED ONE Stop: 10/23/16 11:00 Midazolam HCl (Versed 1 Mg/Ml) Confirm Administered Dose 2 mg .ROUTE .STK-MED ONE Stop: 10/23/16 10:11 Ondansetron HCl (Zofran) Confirm Administered Dose 4 mg .ROUTE .STK-MED ONE Stop: 10/23/16 10:11 Propofol (Diprivan 20 Ml) Confirm Administered Dose 200 mg .ROUTE .STK-MED ONE Stop: 10/23/16 10:11 Rocuronium [place] (Zemuron) Confirm Administered Dose 100 mg .ROUTE .STK-MED ONE Stop: 10/23/16 10:11 - Exam Quality Assessment: DVT prophylaxis General: alert, oriented, cooperative, no acute distress HEENT: Pupils equal, Pupils reactive, EOMI, Mucous membr. moist/pink Neck: supple, other (Swelling and erythema to right neck. Tenderness on palpation. ) Lungs: Clear to auscultation, Normal respiratory effort Cardiovascular: Regular Rate, Regular Rhythm Abdomen: bowel sounds present, soft, no tenderness, no distension Back Exam: normal inspection, full range of motion Extremities: no edema, normal pulses, no tenderness/swelling, no calf tenderness Peripheral Pulses: 2+: radial (L), radial (R), posterior tibial (L), posterior tibial (R), dorsalis pedis (L), dorsalis pedis (R) Skin: warm, dry, intact Wound/Incisions: healing well Neurological: no new focal deficit Psy/Mental Status: alert, normal affect, normal mood - Problem List & Annotations (1) Cellulitis and abscess of neck SNOMED Code(s): 176444072 Code(s): L03.221 - CELLULITIS OF NECK; L02.11 - CUTANEOUS ABSCESS OF NECK Status: Acute Priority: High Current Visit: Yes - Problem List Review Problem List Initiated/Reviewed/Updated: Yes - My Orders Last 24 Hours: My Active Orders 10/22/16 18:58 Patient Status [ADT] Routine May Shower [RC] ASDIRECTED Oxygen Therapy [RC] PRN Peripheral IV Care [RC] Q4H Up With Assistance [RC] ASDIRECTED VTE/DVT Education [RC] PER UNIT ROUTINE Vital Signs [RC] Q4H Consult to Physician [CONS] Routine Acetaminophen [Tylenol] 650 mg PO Q4H PRN Ondansetron [Zofran ODT] 4 mg PO Q4H PRN Sodium Chloride 0.9% [Saline Flush] 10 ml FLUSH ASDIRECTED PRN Sodium Chloride 0.9% [Saline Flush] 2.5 ml FLUSH ASDIRECTED PRN oxyCODONE 5 mg PO Q4H PRN Blood Culture x2 Reflex Set [OM.PC] Stat Peripheral IV Insertion Adult [OM.PC] Routine Resuscitation Status Routine 10/22/16 19:00 Sodium Chloride 0.9% [Normal Saline] 1,000 ml IV ASDIRECTED Sequential Compression Device [OM.PC] Per Unit Routine 10/22/16 19:01 Antiembolic Devices [RC] DAILY 10/22/16 19:04 Notify Provider Consults [RC] ASDIRECTED 10/22/16 19:20 CULTURE BLOOD [BC] Stat 10/22/16 19:30 CULTURE BLOOD [BC] Stat 10/22/16 20:15 cefTRIAXone [Rocephin in Dextrose,Iso-Osm 1 GM/50 ML] 1 gm Premix Bag 1 bag IV Q24H 10/22/16 20:44 Morphine 2 mg IVPUSH Q4H PRN 10/22/16 Dinner NPO After Midnight [Nothing per Oral After Midnight Diet] [DIET] 10/23/16 00:00 metroNIDAZOLE/Normal Saline [Flagyl 500 MG in NS 100 ML] 500 mg Premix Bag 1 bag IV Q6H 10/23/16 08:10 RT Aerosol Therapy [RC] ASDIRECTED 10/24/16 05:00 BASIC METABOLIC PANEL,BMP [CHEM] DAILY CBC WITH AUTO DIFF [HEME] DAILY 10/25/16 05:00 BASIC METABOLIC PANEL,BMP [CHEM] DAILY CBC WITH AUTO DIFF [HEME] DAILY 10/26/16 05:00 BASIC METABOLIC PANEL,BMP [CHEM] DAILY CBC WITH AUTO DIFF [HEME] DAILY - Plan Plan:: 31 yo female with right 33 x 9 mm sublingual space abscess and cellulites. Abscess/cellulites: Blood cultures taken and pending. IV Rocephin and Flagyl day 2. Plan for surgical I&D by Dr. Farris today. NPO VTE: Held for surgery Dispo: 1-2 days pending.
[2016-10-23] MEDS ORDERED: Dexamethasone 4 MG/ML 5 ML MDV ONE (11:38)
[2016-10-23] MEDS ORDERED: EPINEPHrine 1:1000 1 MG/ML SDV ONE (12:07)
[2016-10-23] MEDS ORDERED: fentaNYL 100 MCG/2 ML SDV IVPUSH PRN (12:14)
--- NOTE | 2016-10-23 12:20 | PCM.POSTAN ---
POST ANESTHESIA ASSESSMENT - MENTAL STATUS Mental Status: alert, oriented - VITAL SIGNS Pulse Rate: 107 SaO2: 100 Resp Rate: 13 Blood Pressure: 101/59 - RESPIRATORY Respiratory Status: respiratory rate WNL, airway patent, O2 saturation stable, supplemental oxygen - CARDIOVASCULAR CV Status: pulse rate WNL, blood pressure stable - GASTROINTESTINAL GI Status: no symptoms - PAIN Pain Score: 0 (Pt denies any pain at this time) - POST OP HYDRATION Hydration Status: adequate & stable
--- NOTE | 2016-10-23 14:37 | CT ---
EXAM DATE: 10/22/16 PATIENT'S AGE: 31 Patient: AGUEDA VILLARREAL Facility: [place], [place] Site . Site : [id number] Study: CT ST Neck [id number]/[id number] 5:18:25 PM Ordering Physician: Edwin Hagen Final Report: INDICATION: Difficulty swallowing. Swallowing has been increasing for 3 days. TECHNIQUE: Performed with IV contrast. Contrast: 80 cc of Isovue 370. COMPARISON: None FINDINGS: There is a peripherally enhancing fluid collection medial to the body of the right mandible measuring 33 x 18 x 9 mm (AP by CC by TR), typical for a sublingual space abscess. No adjacent mandibular erosion or destruction is identified. There are enlarged and enhancing lymph nodes in the right neck, level 1B measuring to 14 mm and level 2A measuring to 21 mm. No katie liquefaction or necrosis is identified. Generalized inflammatory streaking of the subcutaneous and deeper adipose tissue planes of the upper neck, greater on the right. There is mild symmetric prominence of both oral pharyngeal tonsils. No other mucosal pathology is identified in the pharynx or larynx. The parotid glands, submandibular glands and thyroid gland are symmetric and unremarkable. No additional abnormal contrast enhancement is identified. No worrisome distant skeletal lesions are identified. The visualized portions of the intracranial contents and apical hemithoraces are unremarkable. I called nurse practitioner Edwin and discussed these findings on 10/22/2016 at 1730 hours IMPRESSION: 1. There is a 33 x 9 mm sublingual space abscess medial to the right mandibular body. 2. Enlarged and enhancing lymph nodes in the adjacent right neck. 3. Associated edematous infiltration of the tissue planes in the upper neck, greater on the right. Dictated by Dick Leonard MD @ Oct 22 2016 5:22PM (Electronic Signature) Report Signed by Proxy and Original Signed Document filed in the Medical Record. MTDD
[2016-10-23] MEDS: oxyCODONE 5 MG Tab PO PRN ×2 (14:53→22:00)
--- NOTE | 2016-10-23 15:31 | PCM.SN ---
- Free Text/Narrative Note: Spoke with Dr. Farris regarding further treatment recommendations: She would like her to stay overnight for more IV antibiotics and fluids. Regular diet as tolerated. Provide Chlorhexidine mouth wash or something similar 3-4 x daily to keep mouth clean. She will stop by tomorrow and check on patient, upon discharge without culture results she recommends Augmentin BID. She will follow up with her (Dr. Farris) in 1 week and encouraged follow up with her dentist in 2-3 weeks.
--- NOTE | 2016-10-23 17:15 | PCM48HPAN ---
Post Anesthesia Note - EVALUATION WITHIN 48HRS OF ANESTHETIC Vital Signs in Normal Range: Yes Patient Participated in Evaluation: Yes Respiratory Function Stable: Yes Airway Patent: Yes Cardiovascular Function Stable: Yes Hydration Status Stable: Yes Pain Control Satisfactory: Yes Nausea and Vomiting Control Satisfactory: Yes Mental Status Recovered: Yes
[2016-10-23] MEDS ORDERED: Benzocaine/Cetylpyridinium/Menthol Lozenge MUCMEM PRN (20:01)
[2016-10-23] MEDS: cefTRIAXone 1 GM in Premix Bag 1 BAG IV SCH (20:09)
[2016-10-24] MEDS: Sodium Chloride 0.9% 1,000 ML IV SCH (01:51)
[2016-10-24 05:13] LABS: CHLORIDE,CL 111 mmol/L (98-110); SODIUM,NA 139 mmol/L (136-146)
[2016-10-24] MEDS: metroNIDAZOLE/Normal Saline 500 MG in Premix Bag 1 BAG IV SCH ×2 (05:33→12:54)
[2016-10-24 08:14] VITALS: BP 94/54
--- NOTE | 2016-10-24 09:19 | PCM.DCSUM1 ---
<Joe Wynne - Last Filed: 10/24/16 09:18> Discharge Summary - Hospital Course HPI Initial Comments: 31 yo female admitted 10/22/16 for sublingual abscess/cellulites. Brief History: Patient stated she woke up on the Friday 10/20 with some swelling and redness to her left jaw. She went into the ED and was given an oral antibiotic and discharged. The next morning the swelling had increased so she returned to the ED where she stated she was given an abx shot (rocephin) as well as a prescription for Clindamycin. On 10/22/18 the patient was still concerned as to the swelling, redness, and now difficulty in opening her mouth so went to see Elizabeth Pineda NP who preformed a CT showing a 33 x 9 mm sublingual space abscess medial to the right mandibular body. There were also adjacent enlarged enhancing lymph nodes and edematous inflitration of the tissue planes of the upper neck, greater on the right. Elizabeth contacted Dr. Farris, ENT, who reviewed the films and instructed Elizabeth to have patient admitted for IV antibiotics and possible drainage of the abscess. Patient stated that she had not had any associated fevers or shortness of breath. She was able to swallow and had never had a similar episode before. She is generally healthy and takes no medication and has no medical allergies. She has had 4 for 4 healthy children. 3 boys and 1 girl. She denied any chest pain, palpitations, shortness or breath, syncopal episodes, or focal neuralogic deficits. - Discharge Data Discharge Date: 10/24/16 Discharge Disposition: Home, Self-Care 01 Condition: Good - Discharge Diagnosis/Problem(s) (1) Cellulitis and abscess of neck SNOMED Code(s): 775366629 ICD Code: L03.221 - CELLULITIS OF NECK; L02.11 - CUTANEOUS ABSCESS OF NECK Status: Acute Priority: High - Patient Summary/Data Consults: Consultations 10/22/16 18:58 Consult to Physician [CONS] Routine Hospital Course: Patient was admitted and treated with IV Rocephin and Flagyl. On day two of admission, patient was taken to OR by Dr. Farris and abscess was aspirated. Patient was kept overnight after OR and continued on Rocephin and Flagyl. - Patient Instructions Diet: Heart Healthy Diet Activity: As Tolerated Driving: Do Not Drive Showering/Bathing: May Shower Notify Provider of: Fever, Increased Pain, Swelling and Redness, Drainage, Nausea and/or Vomiting Other/Special Instructions: Take antiboitic Augmentin for 10 (twice daily). Regular Diet. Mouthwash 3-4 times daily. Follow-up with Dr. Farris in 1 week. Follow-up with dentist 2-3 weeks. Follow-up with primary care physician to establish care. - Discharge Plan Prescriptions/Med Rec: Amoxicillin/Clavulanate K [Augmentin 875 MG/125 MG] 1 tab PO Q12HR #20 tablet Home Medications: Home Meds Amoxicillin/Clavulanate K [Augmentin 875 MG/125 MG] 1 tab PO Q12HR #20 tablet [Rx] Patient Handouts: Amoxicillin; Clavulanic Acid tablets, Abscess Referrals: Elizabeth Pineda NP [Nurse Practitioner] - 11/01/16 9:00 am Libby Farris MD [Physician] - 11/01/16 3:30 pm (1 week ) - Discharge Summary/Plan Comment DC Time >30 min.: Yes Discharge Summary/Plan Comment: 31 yo female admitted 10/22/16 for sublingual abscess/cellulites. Patient stated she woke up on the Friday 10/20 with some swelling and redness to her left jaw. She went into the ED and was given an oral antibiotic and discharged. The next morning the swelling had increased so she returned to the ED where she stated she was given an abx shot (rocephin) as well as a prescription for Clindamycin. On 10/22/18 the patient was still concerned as to the swelling, redness, and now difficulty in opening her mouth so went to see Elizabeth Pineda NP who preformed a CT showing a 33 x 9 mm sublingual space abscess medial to the right mandibular body. There were also adjacent enlarged enhancing lymph nodes and edematous inflitration of the tissue planes of the upper neck, greater on the right. Elizabeth contacted Dr. Farris, ENT, who reviewed the films and instructed Elizabeth to have patient admitted for IV antibiotics and possible drainage of the abscess. Patient stated that she had not had any associated fevers or shortness of breath. She was able to swallow and had never had a similar episode before. She is generally healthy and takes no medication and has no medical allergies. She has had 4 for 4 healthy children. 3 boys and 1 girl. She denied any chest pain, palpitations, shortness or breath, syncopal episodes, or focal neuralogic deficits. Patient was admitted and treated with IV Rocephin and Flagyl. On day two of admission, patient was taken to OR by Dr. Farris and abscess was aspirated. Patient was kept overnight after OR and continued on Rocephin and Flagyl. Patient was discharged the following day in good condition with a prescription for Augmentin for 10 days, a follow-up appointment with Dr. Farris for 1 week, a follow up appointment with a local dentist in 2-3 weeks, and a follow-up appointment with a general practioner to establish care. She was also instructed to resume a regular diet and use mouthwash 3-4 times daily. - Patient Data Vitals - Most Recent: Last Vital Signs Temp 36.6 C 10/24/16 08:00 Pulse 85 10/24/16 08:00 Resp 16 10/24/16 08:00 BP 94/54 L 10/24/16 08:00 Pulse Ox 97 10/24/16 08:00 Weight - Most Recent: 62.823 kg I&O - Last 24 hours: Intake & Output 10/23/16 10/24/16 10/24/16 22:59 06:59 14:59 Intake Total 1518 2290 Output Total 1500 3000 Balance 18 -710 Lab Results - Last 24 hrs: Laboratory Results - last 24 hr 10/24/16 10/24/16 Range/Units 04:30 04:30 WBC 9.59 (4.0-11.0) K/uL RBC 3.41 L (4.30-5.90) M/uL Hgb 9.1 L (12.0-16.0) g/dL Hct 27.8 L (36.0-46.0) % MCV 81.5 (80.0-98.0) fL MCH 26.7 L (27.0-32.0) pg MCHC 32.7 (31.0-37.0) g/dL RDW Std Deviation 43.6 (28.0-62.0) fl RDW Coeff of Milagros 15 (11.0-15.0) % Plt Count 242 (150-400) K/uL MPV 9.80 (7.40-12.00) fL Neut % (Auto) 89.5 H (48.0-80.0) % Lymph % (Auto) 4.3 L (16.0-40.0) % Mck[place]ley % (Auto) 6.2 (0.0-15.0) % Eos % (Auto) 0.0 (0.0-7.0) % Baso % (Auto) 0.0 (0.0-1.5) % Neut # (Auto) 8.6 H (1.4-5.7) K/uL Lymph # (Auto) 0.4 L (0.6-2.4) K/uL [place] # (Auto) 0.6 (0.0-0.8) K/uL Eos # (Auto) 0.0 (0.0-0.7) K/uL Baso # (Auto) 0.0 (0.0-0.1) K/uL Nucleated RBC % 0.0 /100WBC Nucleated RBCs # 0 K/uL Sodium 139 (136-146) mmol/L Potassium 4.5 (3.5-5.1) mmol/L Chloride 111 H (98-110) mmol/L Carbon Dioxide 21 (21-31) mmol/L BUN 9 (6.0-23.0) mg/dL Creatinine 0.8 (0.6-1.5) mg/dL Est Cr Clr Drug Dosing 73.19 mL/min Estimated GFR (MDRD) > 60.0 ml/min Glucose 126 H (60-110) mg/dL Calcium 8.2 L (8.8-10.8) mg/dL RENUKA Results - Last 24 hrs: Microbiology 10/22/16 19:30 Aerobic Blood Culture - Preliminary Blood - Venous - Lab Draw NO GROWTH AFTER 1 DAY Anaerobic Blood Culture - Preliminary NO GROWTH AFTER 1 DAY 10/22/16 19:20 Aerobic Blood Culture - Preliminary Blood - Venous NO GROWTH AFTER 1 DAY Anaerobic Blood Culture - Preliminary NO GROWTH AFTER 1 DAY 10/23/16 11:43 Gram Stain - Preliminary Jaw, Right Med Orders - Current: Current Medications Acetaminophen (Tylenol) 650 mg PO Q4H PRN PRN Reason: Pain (Mild 1-3)/fever Last Admin: 10/24/16 02:54 Dose: 650 mg Benzocaine/Menthol (Cepacol Sore Throat) 1 lozenge MUCMEM TID PRN PRN Reason: Sore Throat Last Admin: 10/23/16 20:15 Dose: 1 lozenge Sodium Chloride (Normal Saline) 1,000 mls @ 100 mls/hr IV ASDIRECTED [facility] Last Admin: 10/24/16 01:51 Dose: 100 mls/hr Metronidazole 500 mg/ Premix 100 mls @ 100 mls/hr IV Q6H [facility] Last Admin: 10/24/16 05:33 Dose: 100 mls/hr Ceftriaxone Sodium/Dextrose 1 (gm/ Premix) 50 mls @ 100 mls/hr IV Q24H [facility] Last Admin: 10/23/16 20:09 Dose: 100 mls/hr Morphine Sulfate (Morphine) 2 mg IVPUSH Q4H PRN PRN Reason: Pain (severe 7-10) Last Admin: 10/23/16 07:11 Dose: 2 mg Ondansetron HCl (Zofran Odt) 4 mg PO Q4H PRN PRN Reason: nausea, able to take PO Oxycodone HCl (Oxycodone) 5 mg PO Q4H PRN PRN Reason: Pain (moderate 4-6) Last Admin: 10/23/16 22:00 Dose: 5 mg Sodium Chloride (Saline Flush) 10 ml FLUSH ASDIRECTED PRN PRN Reason: Keep Vein Open Sodium Chloride (Saline Flush) 2.5 ml FLUSH ASDIRECTED PRN PRN Reason: Keep Vein Open Discontinued Medications Albuterol/Ipratropium (Duoneb 3.0-0.5 Mg/3 Ml) 3 ml NEB ONETIME ONE Stop: 10/23/16 08:11 Last Admin: 10/23/16 08:55 Dose: 3 ml Dexamethasone (Dexamethasone) Confirm Administered Dose 20 mg .ROUTE .STK-MED ONE Stop: 10/23/16 11:39 Enoxaparin Sodium (Lovenox) 40 mg SUBCUT DAILY [facility] Last Admin: 10/23/16 11:35 Dose: Not Given Epinephrine HCl (Adrenalin 1:1000) Confirm Administered Dose 2 mg .ROUTE .STK- MED ONE Stop: 10/23/16 12:08 Fentanyl (Sublimaze) Confirm Administered Dose 250 mcg .ROUTE .STK-MED ONE Stop: 10/23/16 10:11 Fentanyl (Sublimaze) 50 mcg IVPUSH .Q5MIN PRN PRN Reason: Pain Stop: 10/27/16 12:15 Iopamidol (Isovue Multipack-370 (76%)) 75 ml IVPUSH ONETIME STA Stop: 10/22/16 16:06 Last Admin: 10/22/16 17:01 Dose: 75 ml Lidocaine (Xylocaine-Mpf 2%) Confirm Administered Dose 5 ml .ROUTE .STK-MED ONE Stop: 10/23/16 10:11 Lidocaine/Epinephrine (Xylocaine 2% With Epinephrine 1:100,000) Confirm Administered Dose 20 ml .ROUTE .STK-MED ONE Stop: 10/23/16 11:00 Midazolam HCl (Versed 1 Mg/Ml) Confirm Administered Dose 2 mg .ROUTE .STK-MED ONE Stop: 10/23/16 10:11 Ondansetron HCl (Zofran) Confirm Administered Dose 4 mg .ROUTE .STK-MED ONE Stop: 10/23/16 10:11 Phenylephrine HCl (Phenylephrine In Ns 100 Mcg/Ml) Confirm Administered Dose 1 mg .ROUTE .STK-MED ONE Stop: 10/23/16 11:21 Propofol (Diprivan 20 Ml) Confirm Administered Dose 200 mg .ROUTE .STK-MED ONE Stop: 10/23/16 10:11 Rocuronium [place] (Zemuron) Confirm Administered Dose 100 mg .ROUTE .STK-MED ONE Stop: 10/23/16 10:11 *Q Meaningful Use (DIS) - VTE *Q VTE Criteria *Q: - Stroke *Q Stroke Criteria *Q: - AMI *Q AMI Criteria *Q: <Ricky Nugent - Last Filed: 10/25/16 20:04> Discharge Summary - Patient Summary/Data Consults: Consultations 10/22/16 18:58 Consult to Physician [CONS] Routine - Patient Data Vitals - Most Recent: Last Vital Signs Temp 36.6 C 10/24/16 08:00 Pulse 85 10/24/16 08:00 Resp 16 10/24/16 08:00 BP 94/54 L 10/24/16 08:00 Pulse Ox 97 10/24/16 08:00 RENUKA Results - Last 24 hrs: Microbiology 10/22/16 19:30 Aerobic Blood Culture - Preliminary Blood - Venous - Lab Draw NO GROWTH AFTER 3 DAYS Anaerobic Blood Culture - Preliminary NO GROWTH AFTER 3 DAYS 10/22/16 19:20 Aerobic Blood Culture - Preliminary Blood - Venous NO GROWTH AFTER 3 DAYS Anaerobic Blood Culture - Preliminary NO GROWTH AFTER 3 DAYS Med Orders - Current: Current Medications Discontinued Medications Acetaminophen (Tylenol) 650 mg PO Q4H PRN PRN Reason: Pain (Mild 1-3)/fever Last Admin: 10/24/16 02:54 Dose: 650 mg Albuterol/Ipratropium (Duoneb 3.0-0.5 Mg/3 Ml) 3 ml NEB ONETIME ONE Stop: 10/23/16 08:11 Last Admin: 10/23/16 08:55 Dose: 3 ml Benzocaine/Menthol (Cepacol Sore Throat) 1 lozenge MUCMEM TID PRN PRN Reason: Sore Throat Last Admin: 10/23/16 20:15 Dose: 1 lozenge Dexamethasone (Dexamethasone) Confirm Administered Dose 20 mg .ROUTE .STK-MED ONE Stop: 10/23/16 11:39 Enoxaparin Sodium (Lovenox) 40 mg SUBCUT DAILY [facility] Last Admin: 10/23/16 11:35 Dose: Not Given Epinephrine HCl (Adrenalin 1:1000) Confirm Administered Dose 2 mg .ROUTE .STK- MED ONE Stop: 10/23/16 12:08 Fentanyl (Sublimaze) Confirm Administered Dose 250 mcg .ROUTE .STK-MED ONE Stop: 10/23/16 10:11 Fentanyl (Sublimaze) 50 mcg IVPUSH .Q5MIN PRN PRN Reason: Pain Stop: 10/27/16 12:15 Sodium Chloride (Normal Saline) 1,000 mls @ 100 mls/hr IV ASDIRECTED [facility] Last Admin: 10/24/16 01:51 Dose: 100 mls/hr Metronidazole 500 mg/ Premix 100 mls @ 100 mls/hr IV Q6H [facility] Last Admin: 10/24/16 12:54 Dose: Not Given Ceftriaxone Sodium/Dextrose 1 (gm/ Premix) 50 mls @ 100 mls/hr IV Q24H [facility] Last Admin: 10/23/16 20:09 Dose: 100 mls/hr Iopamidol (Isovue Multipack-370 (76%)) 75 ml IVPUSH ONETIME STA Stop: 10/22/16 16:06 Last Admin: 10/22/16 17:01 Dose: 75 ml Lidocaine (Xylocaine-Mpf 2%) Confirm Administered Dose 5 ml .ROUTE .STK-MED ONE Stop: 10/23/16 10:11 Lidocaine/Epinephrine (Xylocaine 2% With Epinephrine 1:100,000) Confirm Administered Dose 20 ml .ROUTE .STK-MED ONE Stop: 10/23/16 11:00 Midazolam HCl (Versed 1 Mg/Ml) Confirm Administered Dose 2 mg .ROUTE .STK-MED ONE Stop: 10/23/16 10:11 Morphine Sulfate (Morphine) 2 mg IVPUSH Q4H PRN PRN Reason: Pain (severe 7-10) Last Admin: 10/23/16 07:11 Dose: 2 mg Ondansetron HCl (Zofran Odt) 4 mg PO Q4H PRN PRN Reason: nausea, able to take PO Ondansetron HCl (Zofran) Confirm Administered Dose 4 mg .ROUTE .STK-MED ONE Stop: 10/23/16 10:11 Oxycodone HCl (Oxycodone) 5 mg PO Q4H PRN PRN Reason: Pain (moderate 4-6) Last Admin: 10/23/16 22:00 Dose: 5 mg Phenylephrine HCl (Phenylephrine In Ns 100 Mcg/Ml) Confirm Administered Dose 1 mg .ROUTE .STK-MED ONE Stop: 10/23/16 11:21 Propofol (Diprivan 20 Ml) Confirm Administered Dose 200 mg .ROUTE .STK-MED ONE Stop: 10/23/16 10:11 Rocuronium [place] (Zemuron) Confirm Administered Dose 100 mg .ROUTE .STK-MED ONE Stop: 10/23/16 10:11 Sodium Chloride (Saline Flush) 10 ml FLUSH ASDIRECTED PRN PRN Reason: Keep Vein Open Sodium Chloride (Saline Flush) 2.5 ml FLUSH ASDIRECTED PRN PRN Reason: Keep Vein Open *Q Meaningful Use (DIS) - VTE *Q VTE Criteria *Q: - Stroke *Q Stroke Criteria *Q: - AMI *Q AMI Criteria *Q: - Free Text/Narrative Note: I have examined the patient. I have discussed findings and treatment plan with resident. I agree with the assessment and plan outlined in the resident's note.
--- NOTE | 2016-10-24 10:02 | PCM.CONSN ---
- General Info Date of Service: 10/24/16 Subjective Update: POD 1 s/p intra oral incision and drainage right sublingual abscess Reports significant improvement in symptoms - pain and mouth opening improved ++ Is taking adequate PO Functional Status: Reports: pain controlled, tolerating diet - Review of Systems General: Reports: No Symptoms HEENT: Reports: other Pulmonary: Reports: no symptoms Cardiovascular: Reports: No Symptoms Neurological: Reports: No Symptoms Psychiatric: Reports: no symptoms - Patient Data Vitals - most recent: Last Vital Signs Temp 36.6 C 10/24/16 08:00 Pulse 85 10/24/16 08:00 Resp 16 10/24/16 08:00 BP 94/54 L 10/24/16 08:00 Pulse Ox 97 10/24/16 08:00 Weight - most recent: 62.823 kg I&O - last 24 hours: Intake & Output 10/23/16 10/24/16 10/24/16 22:59 06:59 14:59 Intake Total 1518 2290 Output Total 1500 3000 Balance 18 -710 Lab Results last 24 hrs: Laboratory Results - last 24 hr 10/24/16 10/24/16 Range/Units 04:30 04:30 WBC 9.59 (4.0-11.0) K/uL RBC 3.41 L (4.30-5.90) M/uL Hgb 9.1 L (12.0-16.0) g/dL Hct 27.8 L (36.0-46.0) % MCV 81.5 (80.0-98.0) fL MCH 26.7 L (27.0-32.0) pg MCHC 32.7 (31.0-37.0) g/dL RDW Std Deviation 43.6 (28.0-62.0) fl RDW Coeff of Milagros 15 (11.0-15.0) % Plt Count 242 (150-400) K/uL MPV 9.80 (7.40-12.00) fL Neut % (Auto) 89.5 H (48.0-80.0) % Lymph % (Auto) 4.3 L (16.0-40.0) % Cross % (Auto) 6.2 (0.0-15.0) % Eos % (Auto) 0.0 (0.0-7.0) % Baso % (Auto) 0.0 (0.0-1.5) % Neut # (Auto) 8.6 H (1.4-5.7) K/uL Lymph # (Auto) 0.4 L (0.6-2.4) K/uL Cross # (Auto) 0.6 (0.0-0.8) K/uL Eos # (Auto) 0.0 (0.0-0.7) K/uL Baso # (Auto) 0.0 (0.0-0.1) K/uL Nucleated RBC % 0.0 /100WBC Nucleated RBCs # 0 K/uL Sodium 139 (136-146) mmol/L Potassium 4.5 (3.5-5.1) mmol/L Chloride 111 H (98-110) mmol/L Carbon Dioxide 21 (21-31) mmol/L BUN 9 (6.0-23.0) mg/dL Creatinine 0.8 (0.6-1.5) mg/dL Est Cr Clr Drug Dosing 73.19 mL/min Estimated GFR (MDRD) > 60.0 ml/min Glucose 126 H (60-110) mg/dL Calcium 8.2 L (8.8-10.8) mg/dL Charles Results last 24 hrs: Microbiology 10/22/16 19:30 Aerobic Blood Culture - Preliminary Blood - Venous - Lab Draw NO GROWTH AFTER 1 DAY Anaerobic Blood Culture - Preliminary NO GROWTH AFTER 1 DAY 10/22/16 19:20 Aerobic Blood Culture - Preliminary Blood - Venous NO GROWTH AFTER 1 DAY Anaerobic Blood Culture - Preliminary NO GROWTH AFTER 1 DAY 10/23/16 11:43 Gram Stain - Preliminary Jaw, Right Med Orders - Current: Current Medications Acetaminophen (Tylenol) 650 mg PO Q4H PRN PRN Reason: Pain (Mild 1-3)/fever Last Admin: 10/24/16 02:54 Dose: 650 mg Benzocaine/Menthol (Cepacol Sore Throat) 1 lozenge MUCMEM TID PRN PRN Reason: Sore Throat Last Admin: 10/23/16 20:15 Dose: 1 lozenge Sodium Chloride (Normal Saline) 1,000 mls @ 100 mls/hr IV ASDIRECTED [facility] Last Admin: 10/24/16 01:51 Dose: 100 mls/hr Metronidazole 500 mg/ Premix 100 mls @ 100 mls/hr IV Q6H [facility] Last Admin: 10/24/16 05:33 Dose: 100 mls/hr Ceftriaxone Sodium/Dextrose 1 (gm/ Premix) 50 mls @ 100 mls/hr IV Q24H [facility] Last Admin: 10/23/16 20:09 Dose: 100 mls/hr Morphine Sulfate (Morphine) 2 mg IVPUSH Q4H PRN PRN Reason: Pain (severe 7-10) Last Admin: 10/23/16 07:11 Dose: 2 mg Ondansetron HCl (Zofran Odt) 4 mg PO Q4H PRN PRN Reason: nausea, able to take PO Oxycodone HCl (Oxycodone) 5 mg PO Q4H PRN PRN Reason: Pain (moderate 4-6) Last Admin: 10/23/16 22:00 Dose: 5 mg Sodium Chloride (Saline Flush) 10 ml FLUSH ASDIRECTED PRN PRN Reason: Keep Vein Open Sodium Chloride (Saline Flush) 2.5 ml FLUSH ASDIRECTED PRN PRN Reason: Keep Vein Open Discontinued Medications Albuterol/Ipratropium (Duoneb 3.0-0.5 Mg/3 Ml) 3 ml NEB ONETIME ONE Stop: 10/23/16 08:11 Last Admin: 10/23/16 08:55 Dose: 3 ml Dexamethasone (Dexamethasone) Confirm Administered Dose 20 mg .ROUTE .STK-MED ONE Stop: 10/23/16 11:39 Enoxaparin Sodium (Lovenox) 40 mg SUBCUT DAILY [facility] Last Admin: 10/23/16 11:35 Dose: Not Given Epinephrine HCl (Adrenalin 1:1000) Confirm Administered Dose 2 mg .ROUTE .STK- MED ONE Stop: 10/23/16 12:08 Fentanyl (Sublimaze) Confirm Administered Dose 250 mcg .ROUTE .STK-MED ONE Stop: 10/23/16 10:11 Fentanyl (Sublimaze) 50 mcg IVPUSH .Q5MIN PRN PRN Reason: Pain Stop: 10/27/16 12:15 Iopamidol (Isovue Multipack-370 (76%)) 75 ml IVPUSH ONETIME STA Stop: 10/22/16 16:06 Last Admin: 10/22/16 17:01 Dose: 75 ml Lidocaine (Xylocaine-Mpf 2%) Confirm Administered Dose 5 ml .ROUTE .STK-MED ONE Stop: 10/23/16 10:11 Lidocaine/Epinephrine (Xylocaine 2% With Epinephrine 1:100,000) Confirm Administered Dose 20 ml .ROUTE .STK-MED ONE Stop: 10/23/16 11:00 Midazolam HCl (Versed 1 Mg/Ml) Confirm Administered Dose 2 mg .ROUTE .STK-MED ONE Stop: 10/23/16 10:11 Ondansetron HCl (Zofran) Confirm Administered Dose 4 mg .ROUTE .STK-MED ONE Stop: 10/23/16 10:11 Phenylephrine HCl (Phenylephrine In Ns 100 Mcg/Ml) Confirm Administered Dose 1 mg .ROUTE .STK-MED ONE Stop: 10/23/16 11:21 Propofol (Diprivan 20 Ml) Confirm Administered Dose 200 mg .ROUTE .STK-MED ONE Stop: 10/23/16 10:11 Rocuronium [place] (Zemuron) Confirm Administered Dose 100 mg .ROUTE .STK-MED ONE Stop: 10/23/16 10:11 - Exam General: alert, oriented, cooperative HEENT: EOMI, Mucous membr. moist/pink Neck: other Skin: warm, dry, intact Wound/Incisions: healing well Psy/Mental Status: alert, normal affect, normal mood Physical Findings Comments:: O/E - Oral cavity / oropharynx Mild trismus Floor of mouth - no edema / no purulence Dental fillings as before' Rest - n Neck - R level II LNs - present - overall swelling improved and no cellulitic skin Consult PN Assessment/Plan POD#: 1 Procedures: Procedures EMERGENCY DEPT VISIT (10/21/16) THER/PROPH/DIAG INJ SC/IM (10/21/16) X-RAY EXAM OF ELBOW (10/11/16) (1) Submandibular abscess SNOMED Code(s): 53289603 Code(s): K12.2 - CELLULITIS AND ABSCESS OF MOUTH Current Visit: Yes Problem List Initiated/Reviewed/Updated: Yes My Orders last 24 hours: My Active Orders 10/23/16 16:22 Communication Order [RC] ASDIRECTED Plan: - Can be discharged today on PO Augmentin and analgesia - To follow up abscess c/s - Follow up with dentist - Follow up with me PRN
== END 2016-10-24 12:15 | disposition home or self-care (01) | DRG 158 ==
LOC: MW.MS 14:49 → MW.CHOBGYN 14:49 → MW.MS 18:15
PROVIDERS: ADMIT Internal Medicine; ATTEND Internal Medicine
PROC: 0W950ZX Drainage of Lower Jaw, Open Approach, Diagnostic (ICD-10-PCS; principal; 2016-10-22)
DX: K12.2 Cellulitis and abscess of mouth (principal); L03.221 Cellulitis of neck; L02.11 Cutaneous abscess of neck; R06.2 Wheezing; F17.200 Nicotine dependence, unspecified, uncomplicated; Z79.899 Other long term (current) drug therapy
CPT/HCPCS: 00170; 36415; 70491; 70491-26; 80048; 81025; 85025; 86140; 86735; 87040; 87070; 87075; 87088; 87186; 87205; 94664; A9270-GY; J0171; J0696; J1100; J2250; J2270; J2405; J2704; J3010; J7040; Q9967

== ENCOUNTER 2017-03-20 15:58 | Emergency (ER) | payer MEDICAID ==
--- NOTE | 2017-03-20 17:14 | EDM.PDOC ---
ED HPI GENERAL MEDICAL PROBLEM - General Chief Complaint: Upper Extremity Injury/Pain Stated Complaint: SMASHED FINGER ON LT HAND Time Seen by Provider: 03/20/17 16:14 - History of Present Illness INITIAL COMMENTS - FREE TEXT/NARRATIVE: HISTORY AND PHYSICAL: []31-year-old female who injured her left thumb History of Present Illness: []Patient was climbing over a practice wall and had her thumb caught between the wall rope and weight she is able to move it slightly but pain stops her from full range of motion Review of Systems: As per history of present illness and below otherwise all systems reviewed and negative. Past medical history: As per history of present illness and as reviewed below otherwise noncontributory. Surgical history: As per history of present illness and as reviewed below otherwise noncontributory. Social history: No reported history of drug or alcohol abuse. Family history: As per history of present illness and as reviewed below otherwise noncontributory. Physical exam: Alert and oriented answering questions in full sentences no shortness of breath HEENT: Atraumatic, normocehpalic, pupils reactive, negative for conjunctival pallor or scleral icterus, mucous membranes moist, throat clear, neck supple, nontender, trachea midline. Lungs: Clear to auscultation, breath sounds equal bilaterally, chest non tender. Heart: S1S2, regular, negative for clicks, rubs, or JVD. Abdomen: Soft, nondistended, nontender. Negative for masses or hepatossplenmegaly. Negative for costovertebral tenderness. Pelvis: Stable nontender. Genitourinary: Deferred. Rectal: Deferred Extremities: Atraumatic, negative for cords or calf pain. Edema noted to the left thumb sensation intact Neurovascular unremarkable. Neuro: Awake, alert, oriented. Cranial nerves II through XII unremarkable. Cerebellum unremarkable. Motor and sensory unremarkable throughout. Exam nonfocal. Diagnostics: []X-rays obtained no acute fracture identified Therapeutics: [] Impression: [Contusion left thumb] Plan: []Home Elevate and ice NSAIDs for discomfort Follow-up with your primary care provider Definitive disposition and diagnosis as appropriate pending reevaluation and review of above. left hand Pain Score (Numeric/FACES): 7 - Related Data Allergies Allergy/AdvReac Type Severity Reaction Status Date / Time No Known Allergies Allergy Verified 03/20/17 16:07 Home Meds: Home Meds . [No Known Home Meds] 03/20/17 [History] Past Medical History - Past Health History Medical/Surgical History: Denies Medical/Surgical History Cardiovascular History: Reports: None Respiratory History: Reports: None [employer] ASS[employer]ATE History: Reports: Musculoskeletal History: Reports: None Dermatologic History: Reports: None - Infectious Disease History Infectious Disease History: Reports: Chicken Pox - Past Surgical History Cardiovascular Surgical History: Reports: None Neurological Surgical History: Reports: None Social & Family History - Family History Family Medical History: Noncontributory - Tobacco Use Smoking Status *Q: Current Every Day Smoker Years of Tobacco use: 6 Packs/Tins Daily: 1 Used Tobacco, but Quit: No Second Hand Smoke Exposure: No - Caffeine Use Caffeine Use: Reports: Coffee - Recreational Drug Use Recreational Drug Use: No Review of Systems - Review of Systems Review Of Systems: ROS reveals no pertinent complaints other than HPI. ED EXAM, GENERAL - Physical Exam Exam: See Below Course - Vital Signs Last Recorded V/S: Last Vital Signs Temp 36.1 C 03/20/17 16:00 Pulse 85 03/20/17 16:00 Resp 16 03/20/17 16:00 BP 121/67 03/20/17 16:00 Pulse Ox 97 03/20/17 16:00 - Orders/Labs/Meds Orders: Active Orders 24 hr Category Date Time Status Fingers Thumb Lt FA [CR] Stat Exams 03/20/17 16:10 Taken Departure - Departure Time of Disposition: 17:13 Disposition: Home, Self-Care 01 Condition: Good Clinical Impression: Contusion Qualifiers: Encounter type: initial encounter Contusion area: finger Finger: thumb Damage to nail status: without damage - Discharge Information Forms: ED Department Discharge Additional Instructions: The following information is given to patients seen in the emergency department who are being discharged to home. This information is to outline your options for follow-up care. We provide all patients seen in our emergency department with a follow-up referral. The need for follow-up, as well as the timing and circumstances, are variable depending upon the specifics of your emergency department visit. If you don't have a primary care physician on staff, we will provide you with a referral. We always advise you to contact your personal physician following an emergency department visit to inform them of the circumstance of the visit and for follow-up with them and/or the need for any referrals to a consulting specialist. The emergency department will also refer you to a specialist when appropriate. This referral assures that you have the opportunity for followup care with a specialist. All of these measure are taken in an effort to provide you with optimal care, which includes your followup. Under all circumstances we always encourage you to contact your private physician who remains a resource for coordinating your care. When calling for followup care, please make the office aware that this follow-up is from your recent emergency room visit. If for any reason you are refused follow-up, please contact the [facility] emergency department at and asked to speak to the emergency department charge nurse. Elevate and ice NSAIDs for discomfort No fractures were noted on your visit to the emergency department today Follow up with your primary care provider - My Orders Last 24 Hours: My Active Orders 03/20/17 16:10 Fingers Thumb Lt FA [CR] Stat - Assessment/Plan Last 24 Hours: My Active Orders 03/20/17 16:10 Fingers Thumb Lt FA [CR] Stat
[2017-03-20 17:22] VITALS: BP 118/62
--- NOTE | 2017-03-21 15:00 | CR ---
EXAM DATE: 03/20/17 PATIENT'S AGE: 31 Patient: AGUEDA VILLARREAL Facility: [place], [place] Site . Site : 1985 Study: XRay Extremity thumb [id number]/17/2017 4:30:41 PM Ordering Physician: Doctor Luna Final Report: INDICATION: Injury 2 days ago. TECHNIQUE: Finger radiographs 3 views COMPARISON: None FINDINGS: Bones: Alignment is normal. No acute fractures or aggressive bone lesions are identified. Joint spaces: The metacarpophalangeal and interphalangeal joints are normal in appearance. Soft tissues: Unremarkable. No radiopaque foreign bodies are noted. IMPRESSION: 1. No acute osseous injuries are identified. Dictated by Steven Man MD @ 03/20/2017 5:07:28 PM Dictated by: Steven Man MD @ 03/20/2017 17:07:35 (Electronic Signature) Report Signed by Proxy. [email or web address]
== END 2017-03-20 17:20 | disposition home or self-care (01) ==
LOC: MW.ED 15:58
DX: S60.012A Contusion of left thumb without damage to nail, initial encounter (principal); F17.210 Nicotine dependence, cigarettes, uncomplicated; W23.1XXA Caught, crushed, jammed, or pinched between stationary objects, initial encounter
CPT/HCPCS: 73140-26-FA; 73140-FA; 99283